=== PATIENT | male | born 1985 | race Caucasian/White ===

== ENCOUNTER 2018-08-19 02:31 | Emergency (ER) | payer OTHER ==
[2018-08-19 03:17] LABS: Absolute Lymphocytes (CBC) 2.3 K/uL (0.7-4.9); Absolute Monocytes 0.4 K/uL (0.1-1.3); Absolute Neutrophil 4.3 K/uL (1.8-8.0); Basophils % 0.6 % (0-1.3); Eosinophils % 2.3 % (0-4.4); Hematocrit 46.1 % (39.6-49.0); Lymphocytes % 31.8 % (15.3-44.8); MPV 8.6 fL (7.6-11.3); Monocytes % 5.9 % (3.3-12.3); Protime INR 1.01; RBC Red Blood Cell Count 5.05 M/uL (4.33-5.43)
[2018-08-19] MEDS ORDERED: FOLIC ACID 5 MG/ML VIAL ONE (03:31)
[2018-08-19 03:32] LABS: ALT/SGPT 44 U/L (12-78); AST/SGOT 37 U/L (15-37); Albumin 3.8 g/dL (3.4-5.0); Alkaline Phosphatase 83 U/L (45-117); BUN Blood Urea Nitrogen 11 mg/dL (7-18); Bicarbonate 25 mmol/L (21-32); Bilirubin Direct 0.2 mg/dL (0-0.2); Bilirubin Total 0.9 mg/dL (0.2-1.0); Glucose Level 96 mg/dL (74-106); Magnesium 1.9 mg/dL (1.8-2.4); Potassium 3.6 mmol/L (3.5-5.1); Protein, Total 6.7 g/dL (6.4-8.2); Sodium Level 143 mmol/L (136-145); Troponin (Emerg Dept Use Only) < 0.02 ng/mL (0.0-0.045)
[2018-08-19] MEDS ORDERED: NA CHLORIDE 0.9% 100 ML IV ONE (03:32)
[2018-08-19] MEDS ORDERED: FENTANYL CITR 100 MCG/2 ML ONE (04:48)
[2018-08-19] MEDS ORDERED: NA CHLORIDE 0.9% 1,000 ML ONE (07:38)
--- NOTE | 2018-08-19 07:53 | EDPHYS ---
Physician Documentation [facility] Name: Stew Mcclendon Age: 32 yrs Sex: Male : 1985 Arrival Date: 08/19/2018 Time: 02:37 Bed 2 Private MD: ED Physician Won Blackwell HPI: 08/19 02:44 This 32 yrs old Male presents to ER via Unassigned with unknown complaint. snw 02:44 This 32 yrs old Male presents to ER via Unassigned with complaints of right snw arm numbness, speech difficulty. 02:44 The patient's problem is reported as numbness to right upper ext, + speech disturbance. snw Onset: The symptoms/episode began/occurred suddenly, this morning, noted on awakening at 0200 post going to bed at 2030. Duration: The episode is continuous. Context: the episode(s) was witnessed, by family, , symptoms became apparent upon waking, occurred at home, occurred while the patient was getting up to go to the bathroom. Associated signs and symptoms: Pertinent positives: speech difficulty. Severity of symptoms: At their worst the symptoms were moderate in the emergency department the symptoms are unchanged. Patient's baseline: Neuro: alert and fully oriented, Motor: no deficits, Ambulation: walks without assistance, Speech: normal. The patient has experienced a previous episode, approximately 1 months ago. It is unknown whether or not the patient has recently seen a physician. 02:53 pt states similar episode one month ago that lasted 1.5 hours and resolved. Pt with 30# snw wt loss in 2 months from cycling. Not much info on family hx. 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 Pt with HTN but has not needed medications for a while per his PCP. 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 - Social history:: Smoking status: Patient/guardian denies using tobacco, Patient/guardian denies using alcohol, street drugs. - Ebola Screening: : Patient negative for fever greater than or equal to 101.5 degrees Fahrenheit, and additional compatible Ebola Virus Disease symptoms Patient denies exposure to infectious person Patient denies travel to an Ebola-affected area in the 21 days before illness onset. ROS: 02:44 Constitutional: Negative for fever, chills, and weight loss, Eyes: Negative for injury, snw pain, redness, and discharge, ENT: Negative for injury, pain, and discharge, Neck: Negative for injury, pain, and swelling, Cardiovascular: Negative for chest pain, palpitations, and edema, Respiratory: Negative for shortness of breath, cough, wheezing, and pleuritic chest pain, Abdomen/GI: Negative for abdominal pain, nausea, vomiting, diarrhea, and constipation, Back: Negative for injury and pain, : Negative for injury, bleeding, discharge, and swelling, Skin: Negative for injury, rash, and discoloration. 02:44 MS/extremity: Positive for paresthesias, numbness to right upper ext. 02:44 Neuro: Positive for numbness. 02:44 Psych: Positive for anxiety. Exam: 02:44 Head/Face: Normocephalic, atraumatic. snw 02:44 Eyes: Pupils equal round and reactive to light, extra-ocular motions intact. Lids and lashes normal. Conjunctiva and sclera are non-icteric and not injected. Cornea within normal limits. Periorbital areas with no swelling, redness, or edema. ENT: Nares patent. No nasal discharge, no septal abnormalities noted. Tympanic membranes are normal and external auditory canals are clear. Oropharynx with no redness, swelling, or masses, exudates, or evidence of obstruction, uvula midline. Mucous membranes moist. Neck: Trachea midline, no thyromegaly or masses palpated, and no cervical lymphadenopathy. Supple, full range of motion without nuchal rigidity, or vertebral point tenderness. No Meningismus. Chest/axilla: Normal chest wall appearance and motion. Nontender with no deformity. No lesions are appreciated. Cardiovascular: Regular rate and rhythm with a normal S1 and S2. No gallops, murmurs, or rubs. Normal PMI, no JVD. No pulse deficits. Respiratory: Lungs have equal breath sounds bilaterally, clear to auscultation and percussion. No rales, rhonchi or wheezes noted. No increased work of breathing, no retractions or nasal flaring. Abdomen/GI: Soft, non-tender, with normal bowel sounds. No distension or tympany. No guarding or rebound. No evidence of tenderness throughout. Back: No spinal tenderness. No costovertebral tenderness. Full range of motion. Skin: Warm, dry with normal turgor. Normal color with no rashes, no lesions, and no evidence of cellulitis. MS/ Extremity: Pulses equal, no cyanosis. Neurovascular intact. Full, normal range of motion. 02:44 Constitutional: The patient appears awake, anxious, uncomfortable. 02:44 Neuro: Orientation: is normal, Mentation: is normal, Memory: is normal, Cranial nerves: grossly normal, minimal on extreme lateral gaze. Motor: is normal, Sensation: no obvious gross deficits, Gait: not applicable Babinski testing is normal, seizure activity, is not displayed by the patient. 02:44 Psych: Affect is animated, anxious. Vital Signs: 02:35 BP 180 / 112; Pulse 93; Resp 20; Temp 98.3(O); Pulse Ox 98% on R/A; Weight 104.78 kg fc (R); Height 5 ft. 8 in. (172.72 cm) (R); Pain 0/10; 03:21 BP 138 / 91; Pulse 84; Resp 14; Pulse Ox 97% on R/A; tl2 04:28 BP 124 / 86; Pulse 88; Resp 18; Pulse Ox 98% ; ea 04:38 BP 124 / 86; Pulse 84; Resp 19; Pulse Ox 100% on R/A; tl2 05:13 BP 132 / 84; Pulse 67; Resp 15; Pulse Ox 98% on R/A; tl2 06:05 BP 112 / 74; Pulse 70; Resp 12; Pulse Ox 99% on R/A; tl2 06:55 BP 112 / 74; Pulse 66; Resp 15; Pulse Ox 97% on R/A; tl2 02:35 Body Mass Index 35.12 (104.78 kg, 172.72 cm) NIH Stroke Scale Scores: 02:40 NIHSS Score: 1 tl2 02:44 NIHSS Score: 1 snw MDM: 02:38 Patient medically screened. snw 02:52 Data reviewed: vital signs, nurses notes. Data interpreted: Pulse oximetry: on room air snw is 98 %. Interpretation: normal. Counseling: I had a detailed discussion with the patient and/or guardian regarding: the historical points, exam findings, and any diagnostic results supporting the discharge/admit diagnosis, the presence of at least one elevated blood pressure reading (>120/80) during this emergency department visit, lab results, radiology results. 04:31 Awaiting: CT scan results, transmission problem, loom technician working with IT, no obvious snw abnormality on CT. . 04:36 Transition of care: After a detail discussion of the patient's case, care is snw transferred to Won Blackwell MD. 08:10 ED course: I discussed the patient with Dr. Pearson whom accepted transfer. [facility] 08/19 02:44 Order name: Basic Metabolic Panel [facility] 08/19 02:44 Order name: CBC with Diff [facility] 08/19 02:44 Order name: LFT's [facility] 08/19 02:44 Order name: Magnesium [facility] 08/19 02:44 Order name: PT-INR; Complete Time: 03:28 [facility] 08/19 02:44 Order name: Troponin (emerg Dept Use Only); Complete Time: 04:14 [facility] 08/19 02:46 Order name: Basic Metabolic Panel; Complete Time: 04:14 [facility] 08/19 02:46 Order name: CBC with Automated Diff; Complete Time: 03:28 [facility] 08/19 02:46 Order name: Liver (Hepatic) Function; Complete Time: 04:14 [facility] 08/19 02:46 Order name: Magnesium; Complete Time: 04:14 [facility] 08/19 07:18 Order name: Acetaminophen [facility] 08/19 07:18 Order name: ETOH Level; Complete Time: 10:06 [facility] 08/19 07:18 Order name: Ptt, Activated; Complete Time: 10:06 [facility] 08/19 07:18 Order name: Salicylate; Complete Time: 10:22 [facility] 08/19 02:44 Order name: XRAY Chest (1 view); Complete Time: 09:04 [facility] 08/19 02:44 Order name: EKG; Complete Time: 02:47 [facility] 08/19 02:44 Order name: Cardiac monitoring; Complete Time: 02:44 [facility] 08/19 02:44 Order name: EKG - Nurse/Tech; Complete Time: 03:04 [facility] 08/19 02:44 Order name: IV Saline Lock; Complete Time: 03:04 snw 08/19 02:44 Order name: Labs collected and sent; Complete Time: 03:08 snw 08/19 02:44 Order name: CT Stroke Brain w/o Contrast snw 08/19 07:21 Order name: Acetaminophen Level; Complete Time: 10:22 EDMS 08/19 07:32 Order name: MRI - Brain Wo Cont; Complete Time: 08:31 bd 08/19 02:44 Order name: O2 Per Protocol; Complete Time: 02:44 snw 08/19 02:44 Order name: O2 Sat Monitoring; Complete Time: 02:44 snw Administered Medications: 03:20 Drug: foLIC Acid 1 mg Route: IVPB; Site: right forearm; tl2 04:14 Follow up: Response: No adverse reaction; IV Status: Completed infusion ea 05:06 Drug: fentaNYL (PF) 25 mcg Route: IVP; Site: right forearm; tl2 05:30 Follow up: Response: No adverse reaction; Pain is decreased ea 06:28 Drug: fentaNYL (PF) 25 mcg Route: IVP; Site: right forearm; ea 07:28 Drug: NS 0.9% 1000 ml Route: IV; Rate: 1 bolus; Site: right forearm; sg 09:00 Drug: Aspirin Chewable Tablet 324 mg Route: PO; sg Point of Care Testing: Blood Glucose: 02:41 Blood Glucose: 93 mg/dL; fc Ranges: Critical Glucose Levels:Adult <50 mg/dl or >400 mg/dl <40 mg/dl or >180 mg/dl Disposition: 08/19/18 07:53 Transfer ordered to [facility]. Diagnosis are Headache, Weakness, Cerebral infarction. - Reason for transfer: Higher level of care. - Accepting physician is [facility] Neurology . - Condition is Stable. - Problem is new. - Symptoms have improved. NIH Stroke Scale - NIH Stroke Score Date: 08/19/2018 Time: 02:40 Total Score = 1 1a. Level of Consciousness (LOC) - 0(Alert) 1b. Level of Consciousness (LOC) (Year \\T\\ Age) - 0(Both) 1c. LOC Commands (Open \\T\\ Closes Eyes/Real Estate Rental Agent) - 0(Both) 2. Best Gaze (Lateral Gaze Paresis) - 0(Normal) 3. Visual Field Loss - 0(No visual loss) 4. Facial Palsy - 0(Normal) 5a. Left Arm: Motor (10-second hold) - 0(No drift) 5b. Right Arm: Motor (10-second hold) - 0(No drift) 6a. Left Leg: Motor (5-second hold - always test supine) - 0(No drift) 6b. Right Leg: Motor (5-second hold - always test supine) - 0(No drift) 7. Limb Ataxia (finger/nose \\T\\ heel/mckeon - test with eyes open) - 0(Absent) 8. Sensory Loss (pinprick arms/legs/face) - 0(Normal) 9. Best Language: Aphasia (description/naming/reading) - 0(No aphasia) 10. Dysarthria (speech clarity - read or repeat words) - 1(Mild to Moderate) 11. Extinction and Inattention (visual/tactile/auditory/spatial/personal) - 0(No abnormality) Initials: tl2 NIH Stroke Scale - NIH Stroke Score Date: 08/19/2018 Time: 02:44 Total Score = 1 1a. Level of Consciousness (LOC) - 0(Alert) 1b. Level of Consciousness (LOC) (Year \\T\\ Age) - 0(Both) 1c. LOC Commands (Open \\T\\ Closes Eyes/Real Estate Rental Agent) - 0(Both) 2. Best Gaze (Lateral Gaze Paresis) - 0(Normal) 3. Visual Field Loss - 0(No visual loss) 4. Facial Palsy - 0(Normal) 5a. Left Arm: Motor (10-second hold) - 0(No drift) 5b. Right Arm: Motor (10-second hold) - 0(No drift) 6a. Left Leg: Motor (5-second hold - always test supine) - 0(No drift) 6b. Right Leg: Motor (5-second hold - always test supine) - 0(No drift) 7. Limb Ataxia (finger/nose \\T\\ heel/mckeon - test with eyes open) - 0(Absent) 8. Sensory Loss (pinprick arms/legs/face) - 0(Normal) 9. Best Language: Aphasia (description/naming/reading) - 0(No aphasia) 10. Dysarthria (speech clarity - read or repeat words) - 1(Mild to Moderate) 11. Extinction and Inattention (visual/tactile/auditory/spatial/personal) - 0(No abnormality) Initials: snw Signatures: Dispatcher [employer] EDND Jorge Kennedy, RN RN Zhou William MD MD cha Therrien, Shelly, CARDIOTHORACIC ANESTHESIA TECHNICIAN-C CARDIOTHORACIC ANESTHESIA TECHNICIAN-Csnw Iván Mcneil PA PA jmm Chretien, Felicia RN RN Natividad Scherer RN RN tl2 Gilma Nuñez RN RN ea Corrections: (The following items were deleted from the chart) 08:32 07:20 MR STROKE PROTOCOL+MRI.RAD.BRZ ordered. [facility] 11:02 07:53 08/19/2018 07:53 Transfer ordered to [facility]. Diagnosis is sg Headache; Weakness; Cerebral infarction. Reason for transfer: Higher level of care. Accepting physician is [facility] Neurology . Condition is Stable. Problem is new. Symptoms have improved. trent
--- NOTE | 2018-08-19 07:53 | ER ---
Nurse's Notes [facility] Name: Stew Mcclendon Age: 32 yrs Sex: Male : 1985 Arrival Date: 08/19/2018 Time: 02:37 Bed 2 Private MD: Diagnosis: Headache;Weakness;Cerebral infarction Presentation: 08/19 02:35 Presenting complaint: Patient states: that he went to bed last night just fine. When he fc woke up this morning at 0200 he had right side numbness and trouble speaking. Has same episode 2 weeks ago and it lasted approx 1.5 hrs. Transition of care: patient was not received from another setting of care. Onset of symptoms was August 18, 2018 at 20:30. Risk Assessment: Do you want to hurt yourself or someone else? Patient reports no desire to harm self or others. Initial Sepsis Screen: Does the patient meet any 2 criteria? HR > 90 bpm. Yes Does the patient have a suspected source of infection? No. Patient's initial sepsis screen is negative. Care prior to arrival: None. 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 - Social history:: Smoking status: Patient/guardian denies using tobacco, Patient/guardian denies using alcohol, street drugs. - Ebola Screening: : Patient negative for fever greater than or equal to 101.5 degrees Fahrenheit, and additional compatible Ebola Virus Disease symptoms Patient denies exposure to infectious person Patient denies travel to an Ebola-affected area in the 21 days before illness onset. Screenin:35 Abuse screen: Denies threats or abuse. Nutritional screening: No deficits noted. fc Tuberculosis screening: No symptoms or risk factors identified. Fall Risk None identified. 02:40 VAN Screening: Arm Drift: Patient shows no arm weakness. Patient is VAN negative. tl2 Visual Disturbance: No visual disturbance noted. Aphasia: No aphasia noted. Neglect: No neglect noted. The patient has not been NPO before screening. The patient is alert, able to follow commands. The patient does not exhibit slurred or garbled speech The patient is exhibiting difficulty speaking. The patient does not exhibit difficulty understanding words. The patient is able to swallow own secretions with no drooling or need for suction. Patient tolerated one teaspoon of water. No drooling, immediate coughing, gurgling, or clearing of the throat was noted. The patient tolerated 90mL of water. No drooling, immediate coughing, gurgling, or clearing of the throat was noted. The patient passed the bedside swallow screening. Oral medications may be given as ordered. Contact Physician for further diet orders. Provider notified of bedside swallow screening results: Li TAM. Assessment: 02:40 General: Appears in no apparent distress. Behavior is calm, cooperative, appropriate ea for age. Pain: Denies pain. Neuro: Level of Consciousness is awake, alert, obeys commands, Oriented to person, place, time, situation, Associate Director Of Nursing are equal bilaterally Moves all extremities. Gait is steady, Speech is normal, Facial symmetry appears normal. Cardiovascular: Patient's skin is warm and dry. Respiratory: Airway is patent Respiratory effort is even, unlabored, Respiratory pattern is regular, symmetrical. Derm: Skin is pink, warm \\T\\ dry. 03:00 Reassessment: Patient appears in no apparent distress at this time. Patient and/or tl2 family updated on plan of care and expected duration. Pain level reassessed. pt reports numbness in mouth, denies difficulty swallowing. Awaiting CT results. 04:00 Reassessment: Patient appears in no apparent distress at this time. Patient and/or tl2 family updated on plan of care and expected duration. Pain level reassessed. Patient is alert, oriented x 3, equal unlabored respirations, skin warm/dry/pink. Awaiting CT results. 05:00 Reassessment: Patient appears in no apparent distress at this time. Patient and/or tl2 family updated on plan of care and expected duration. Pain level reassessed. Patient is alert, oriented x 3, equal unlabored respirations, skin warm/dry/pink. Awaiting CT results. 05:26 Reassessment: Patient and/or family updated on plan of care and expected duration. Pain ea level reassessed. Patient is alert, oriented x 3, equal unlabored respirations, skin warm/dry/pink. Awaiting on CT results. 07:29 Reassessment: Patient appears in no apparent distress at this time. Patient and/or sg family updated on plan of care and expected duration. Pain level reassessed. Patient is alert, oriented x 3, equal unlabored respirations, skin warm/dry/pink. Neuro: Level of Consciousness is awake, alert, obeys commands, Oriented to person, place, time, situation, Associate Director Of Nursing are equal bilaterally Speech is normal, Facial symmetry appears normal. Respiratory: Airway is patent Respiratory effort is Respiratory pattern is. 10:29 Reassessment: Patient appears in no apparent distress at this time. Patient and/or sg family updated on plan of care and expected duration. Pain level reassessed. Patient is alert, oriented x 3, equal unlabored respirations, skin warm/dry/pink. reports headache that is a 4/10 at this time, awaiting pt transport to receiving facility, pt requesting food, pt to remain NPO until seen by Neuro, will continue to monitor. Vital Signs: 02:35 BP 180 / 112; Pulse 93; Resp 20; Temp 98.3(O); Pulse Ox 98% on R/A; Weight 104.78 kg fc (R); Height 5 ft. 8 in. (172.72 cm) (R); Pain 0/10; 03:21 BP 138 / 91; Pulse 84; Resp 14; Pulse Ox 97% on R/A; tl2 04:28 BP 124 / 86; Pulse 88; Resp 18; Pulse Ox 98% ; ea 04:38 BP 124 / 86; Pulse 84; Resp 19; Pulse Ox 100% on R/A; tl2 05:13 BP 132 / 84; Pulse 67; Resp 15; Pulse Ox 98% on R/A; tl2 06:05 BP 112 / 74; Pulse 70; Resp 12; Pulse Ox 99% on R/A; tl2 06:55 BP 112 / 74; Pulse 66; Resp 15; Pulse Ox 97% on R/A; tl2 02:35 Body Mass Index 35.12 (104.78 kg, 172.72 cm) Vitals: 03:21 Cardiac Rhythm Assessment Sinus rhythm. tl2 NIH Stroke Scale Scores: 02:40 NIHSS Score: 1 tl2 02:44 NIHSS Score: 1 sn ED Course: 02:35 Arm band placed on Patient placed in an exam room, on a stretcher. fc 02:35 Patient has correct armband on for positive identification. Placed in gown. Bed in low fc position. Call light in reach. Side rails up X2. potline monitor on. Pulse ox on. NIBP on. 02:37 Patient arrived in ED. tl2 02:38 Li Lyle FNP-C is PHCP. snw 02:38 Won Blackwell MD is Attending Physician. snw 02:46 Triage completed. fc 02:59 X-ray completed. Portable x-ray completed in exam room. Patient tolerated procedure kw well. 02:59 EKG done, by ED staff, reviewed by Li TAM. fc 03:00 XRAY Chest (1 view) In Process Unspecified. EDMS 03:03 Inserted saline lock: 22 gauge in right forearm, using aseptic technique. Blood rv collected. 03:08 CT Stroke Brain w/o Contrast In Process Unspecified. EDMS 03:08 Initial lab(s) drawn, by shellfish processing laborer, sent to lab. tl2 04:28 Gilma Nuñez, RN is Primary Nurse. ea 06:52 PHCP role handed off by Li Lyle FNP-C jm 06:52 Iván Mcneil PA is PHCP. jmm 07:25 attempted transfer to [facility], pt was declined due to lack of capacity. bd 08:08 Patient moved to MRI via stretcher. lc 08:11 MRI - Brain Wo Cont In Process Unspecified. EDMS 08:37 Patient moved back from MRI. lc Administered Medications: 03:20 Drug: foLIC Acid 1 mg Route: IVPB; Site: right forearm; tl2 04:14 Follow up: Response: No adverse reaction; IV Status: Completed infusion ea 05:06 Drug: fentaNYL (PF) 25 mcg Route: IVP; Site: right forearm; tl2 05:30 Follow up: Response: No adverse reaction; Pain is decreased ea 06:28 Drug: fentaNYL (PF) 25 mcg Route: IVP; Site: right forearm; ea 07:28 Drug: NS 0.9% 1000 ml Route: IV; Rate: 1 bolus; Site: right forearm; sg 09:00 Drug: Aspirin Chewable Tablet 324 mg Route: PO; Point of Care Testing: Blood Glucose: 02:41 Blood Glucose: 93 mg/dL; fc Ranges: Outcome: 07:53 ER care complete, transfer ordered by MD. kent 11:02 Patient left the ED. NIH Stroke Scale - NIH Stroke Score Date: 08/19/2018 Time: 02:40 Total Score = 1 1a. Level of Consciousness (LOC) - 0(Alert) 1b. Level of Consciousness (LOC) (Year \\T\\ Age) - 0(Both) 1c. LOC Commands (Open \\T\\ Closes Eyes/Readiness Paraprofessional) - 0(Both) 2. Best Gaze (Lateral Gaze Paresis) - 0(Normal) 3. Visual Field Loss - 0(No visual loss) 4. Facial Palsy - 0(Normal) 5a. Left Arm: Motor (10-second hold) - 0(No drift) 5b. Right Arm: Motor (10-second hold) - 0(No drift) 6a. Left Leg: Motor (5-second hold - always test supine) - 0(No drift) 6b. Right Leg: Motor (5-second hold - always test supine) - 0(No drift) 7. Limb Ataxia (finger/nose \\T\\ heel/mckeon - test with eyes open) - 0(Absent) 8. Sensory Loss (pinprick arms/legs/face) - 0(Normal) 9. Best Language: Aphasia (description/naming/reading) - 0(No aphasia) 10. Dysarthria (speech clarity - read or repeat words) - 1(Mild to Moderate) 11. Extinction and Inattention (visual/tactile/auditory/spatial/personal) - 0(No abnormality) Initials: tl2 NIH Stroke Scale - NIH Stroke Score Date: 08/19/2018 Time: 02:44 Total Score = 1 1a. Level of Consciousness (LOC) - 0(Alert) 1b. Level of Consciousness (LOC) (Year \\T\\ Age) - 0(Both) 1c. LOC Commands (Open \\T\\ Closes Eyes/Readiness Paraprofessional) - 0(Both) 2. Best Gaze (Lateral Gaze Paresis) - 0(Normal) 3. Visual Field Loss - 0(No visual loss) 4. Facial Palsy - 0(Normal) 5a. Left Arm: Motor (10-second hold) - 0(No drift) 5b. Right Arm: Motor (10-second hold) - 0(No drift) 6a. Left Leg: Motor (5-second hold - always test supine) - 0(No drift) 6b. Right Leg: Motor (5-second hold - always test supine) - 0(No drift) 7. Limb Ataxia (finger/nose \\T\\ heel/mckeon - test with eyes open) - 0(Absent) 8. Sensory Loss (pinprick arms/legs/face) - 0(Normal) 9. Best Language: Aphasia (description/naming/reading) - 0(No aphasia) 10. Dysarthria (speech clarity - read or repeat words) - 1(Mild to Moderate) 11. Extinction and Inattention (visual/tactile/auditory/spatial/personal) - 0(No abnormality) Initials: snw Signatures: Dispatcher [employer] EDMS Elissa Herrera Steven, RN RN sg Li Lyle, BOAT HOIST OPERATOR HELPER-C BOAT HOIST OPERATOR HELPER-Csnw Iván Mcneil PA PA jmm Compean, Lorena lc Chretien, Felicia RN LEW Bere Mireles Taylor, RN RN tl2 Gilma Nuñez RN RN ea Vicente, Ronaldo RN RN rv Corrections: (The following items were deleted from the chart) 03:01 02:59 EKG done, by ED staff, reviewed by Won Blcakwell MD [facility] 06:08 03:11 NIHSS Score: 1 tl2 tl2
--- NOTE | 2018-08-19 08:29 | RAD REPORT ---
EXAM DESCRIPTION: MRI - Brain Wo Cont - 08/19/2018 8:12 am CLINICAL HISTORY: Right-sided weakness, acute stroke-like symptoms COMPARISON: CT head August 19 TECHNIQUE: Sagittal T1-weighted images were obtained along with axial PD, heavily T2-weighted and T2 -FLAIR images. Axial DWI and ADC mapping sequences were also obtained along with coronal heavily T2-w eighted images. FINDINGS: No intracranial hemorrhage, mass or acute infarction. There is no edema or shift of midlin e structures. No extra-axial fluid collections. Shaffer-matter/white matter junction is preserved. Signa l voids are seen as a normal finding in the major intracranial vessels. No globe or orbital content abnormality. No sella or supra sella abnormality. There is no tonsillar e ctopia. Mastoid air cells and paranasal sinuses are clear. IMPRESSION: No acute infarction changes. No acute intracranial finding.
[2018-08-19] MEDS ORDERED: ASPIRIN 81 MG CHEWABLE TABLET ONE (08:46)
--- NOTE | 2018-08-19 09:01 | RAD REPORT ---
EXAM DESCRIPTION: RAD - Chest Single View - 08/19/2018 2:59 am CLINICAL HISTORY: Stroke protocol chest film COMPARISON: None. TECHNIQUE: AP portable chest image was obtained 0257 hours . FINDINGS: Lungs are clear. Heart and vasculature are normal. No measurable pleural effusion and no p neumothorax. No acute bony abnormality seen. No acute aortic findings suspected. IMPRESSION: No acute cardiopulmonary process.
--- NOTE | 2018-08-19 09:54 | EKG ---
Test Date: 2018-08-19 Test Time: 02:59:15 Potato Sorter: MONI MEASUREMENT RESULTS: Intervals: Rate: 89 FL: 126 QRSD: 90 QT: 384 QTc: 467 Corral: P: 51 FL: 126 QRS: 70 T: 33 INTERPRETIVE STATEMENTS: Normal sinus rhythm Normal ECG No previous ECG available for comparison Electronically Signed On 08-19-18 09:53:34 CDT by Carroll Albarran
--- NOTE | 2018-08-19 10:40 | RAD REPORT ---
EXAM DESCRIPTION: CT - Ct Stroke Brain Wo Cont - 08/19/2018 6:13 am CLINICAL HISTORY: Numbness;Slurred speech COMPARISON: None. TECHNIQUE: CT HEAD WITHOUT IV CONTRAST on 08/19/2018 2:44 AM CDT This exam was performed according to our departmental dose-optimization program, which includes autom ated exposure control, adjustment of the mA and/or kV according to patient size and/or use of iterati ve reconstruction technique. FINDINGS: There is no acute hemorrhage, mass effect or midline shift. Shaffer-white differentiation is preserved. There is no hydrocephalus. There is no significant volume loss for age. The calvarium is intact. Orbits and globes are unremarkable. The paranasal sinuses are clear. Mastoid air cells are clear. IMPRESSION: No acute intracranial findings. Electronically signed by: Dayday Yuan MD 08/19/2018 5:10 AM CDT Due to temporary technical issues with the PACS/Fluency reporting system, reports are being signed by the in house radiologist as a courtesy to ensure prompt reporting. The interpreting radiologist is f ully responsible for the content of the report.
== END 2018-08-19 11:02 | disposition short-term general hospital (02) ==
LOC: ER 02:31
DX: I63.9 Cerebral infarction, unspecified (principal); I10 Essential (primary) hypertension; R29.701 NIHSS score 1; Z88.0 Allergy status to penicillin; Z88.6 Allergy status to analgesic agent; Z88.8 Allergy status to other drugs, medicaments and biological substances
CPT/HCPCS: 36415; 70450; 70551; 71045; 80048; 80076; 80320; 80329; 82962; 83735; 84484; 85025; 85610; 85730; 93005; 96365; 96375; 99285; J3010; J7030

== ENCOUNTER 2018-08-30 12:37 | Emergency (ER) | payer OTHER ==
--- OUTSIDE RECORDS SUMMARY | 2018-08-30 12:40 | XMS REPORT ---
:1985 Author Organization [facility] Address [address] [place] [address] Dr. Moore [address] [place] [id number] Care Team Providers Name Role Phone Unavailable Unavailable Unavailable Problems This patient has no known problems. Allergies, Adverse Reactions, Alerts This patient has no known allergies or adverse reactions. Medications This patient has no known medications.
--- NOTE | 2018-08-30 12:59 | RAD REPORT ---
EXAM DESCRIPTION: CT - Ct Stroke Brain Wo Cont - 08/30/2018 12:52 pm CLINICAL HISTORY: Right-sided weakness, bilateral upper extremity numbness CLINICAL HISTORY: CT Stroke protocol August 19, MRI August 19 TECHNIQUE: Axial 5 millimeter thick images of the head were obtained without IV contrast. All CT scans are performed using dose optimization technique as appropriate and may include automated exposure control or mA/KV adjustment according to patient size. FINDINGS: No intracranial hemorrhage, mass, or cerebral edema. No acute cortical based infarction. N o cortical edema or sulcal effacement. Ventricles are normal size. No extra-axial fluid collections. Shaffer matter-white matter differentiation is preserved. Intracranial findings are stable from comparison. Visualized portions of the mastoid air cells, paranasal sinuses, and orbits are unremarkable. Findings telephoned to the referring clinician 12:55 p.m. IMPRESSION: No CT evidence of acute intracranial process. No significant change from comparison.
[2018-08-30 13:07] LABS: Absolute Lymphocytes (CBC) 4.5 K/uL (0.7-4.9); Basophils % 0.5 % (0-1.3); Eosinophils % 1.2 % (0-4.4); Hematocrit 49.8 % (39.6-49.0); MPV 8.3 fL (7.6-11.3); Monocytes % 6.5 % (3.3-12.3); RBC Red Blood Cell Count 5.45 M/uL (4.33-5.43)
[2018-08-30 13:10] LABS: Protime INR 0.97
[2018-08-30 13:12] LABS: Potassium 3.8 mmol/L (3.5-5.1)
--- NOTE | 2018-08-30 13:17 | RAD REPORT ---
EXAM DESCRIPTION: RAD - Chest Single View - 08/30/2018 1:06 pm CLINICAL HISTORY: Shortness of breath, Stroke protocol chest film COMPARISON: August 19 TECHNIQUE: AP portable chest image was obtained 1258 hours . FINDINGS: Lungs are clear. Heart and vasculature are normal. No measurable pleural effusion and no p neumothorax. No acute bony abnormality seen. No acute aortic findings suspected. IMPRESSION: No acute cardiopulmonary process. No significant interval change.
--- NOTE | 2018-08-30 13:52 | RAD REPORT ---
EXAM DESCRIPTION: MRI - Brain Wo Cont - 08/30/2018 1:45 pm CLINICAL HISTORY: Slurred speech, whole body numbness, stroke-like symptoms COMPARISON: CT head August 30, MR brain August 19 TECHNIQUE: Sagittal T1-weighted images were obtained along with axial PD, heavily T2-weighted and T2 -FLAIR images. Axial DWI and ADC mapping sequences were also obtained along with coronal heavily T2-w eighted images. FINDINGS: No intracranial hemorrhage, mass or acute infarction. There is no edema or shift of midlin e structures. No extra-axial fluid collections. Shaffer-matter/white matter junction is preserved. Signa l voids are seen as a normal finding in the major intracranial vessels. Ventricles are normal. No atrophy changes. No white matter signal abnormalities identifiable. No sell a or supra sella abnormality. No globe or orbital content abnormality. Mastoid air cells and paranasal sinuses are clear. IMPRESSION: Negative non-contrast MRI of the Brain. No identifiable changes from prior imaging.
[2018-08-30 14:07] LABS: Thyroid Stimulating Hormone 1.52 uIU/mL (0.360-3.740)
[2018-08-30] MEDS ORDERED: METOCLOPRAMIDE 10 MG/2mL INJ ONE (14:12)
[2018-08-30] MEDS ORDERED: NA CHLORIDE 0.9% 1,000 ML ONE (14:12)
[2018-08-30] MEDS ORDERED: MEPERIDINE HCL 25 MG/0.5 ML ONE (15:34)
[2018-08-30] MEDS ORDERED: ONDANSETRON 4 MG/2 ML VIAL ONE (15:34)
[2018-08-30] MEDS ORDERED: KETOROLAC 30 MG/ML INJ ONE (16:08)
--- NOTE | 2018-08-30 16:42 | ER ---
Nurse's Notes [facility] Name: Stew Mcclendon Age: 32 yrs Sex: Male : 1985 Arrival Date: 08/30/2018 Time: 12:42 Bed 8 Private MD: Diagnosis: Complicated headache syndromes Presentation: 08/30 12:33 An acute neurological deficit is present. The patient has been moved to a [facility]. Pre-hospital glucose is not applicable to this patient. 12:33 Presenting complaint: Pt's co-worker states "we were in [employer] shopping and he started aa5 slurring his words and complaining of numbness to the left side of his body". Pt currently c/o numbness to right and left side of body. Pt was able to get out of car by himself to a wheelchair. Pt placed in bed, pt able to ambulate from wheelchair to bed with steady gait. Pt reports he was discharged from [facility] on August 20 and states "they diagnosed me with a neurological disorder because they couldn't figure out exactly what was wrong with me". Transition of care: patient was not received from another setting of care. Onset of symptoms was August 30, 2018. Risk Assessment: Do you want to hurt yourself or someone else? Patient reports no desire to harm self or others. Initial Sepsis Screen: Does the patient meet any 2 criteria? No. Patient's initial sepsis screen is negative. Does the patient have a suspected source of infection? No. Patient's initial sepsis screen is negative. Care prior to arrival: None. 12:33 Acuity: JEAN 2 aa5 12:33 Method Of Arrival: Wheelchair aa5 12:33 Onset of symptoms was August 30, 2018 at 12:00. aa5 Triage Assessment: 12:33 The onset of the patients symptoms was August 30, 2018 at 12:00. aa5 Stroke Activation: Symptom onset < 3 hours Physician: Stroke Attending; Name: ; Notified At: ; Arrived At: Physician: Chief Stroke Resident; Name: ; Notified At: ; Arrived At: Physician: Stroke Resident; Name: ; Notified At: ; Arrived At: Physician: ED Attending; Name: ; Notified At: ; Arrived At: Physician: ED Resident; Name: ; Notified At: ; Arrived At: Historical: - Allergies: 12:35 Ceclor; aa5 12:35 PENICILLINS; aa5 12:35 Tylenol; aa5 - Home Meds: 13:05 Propranolol Oral for migraines [Active]; aa5 - PMHx: 12:35 "born premature with multiple strokes"; Asthma; Hypertension; Migraines; aa5 - PSHx: 12:35 None; aa5 - Family history:: not pertinent. - Ebola Screening: : No symptoms or risks identified at this time. - Hospitalizations: : Patient was recently seen at. Screenin:05 Abuse screen: Denies threats or abuse. Nutritional screening: No deficits noted. aa5 Tuberculosis screening: No symptoms or risk factors identified. Fall Risk IV access (20 points). Total Rodrigues Fall Scale indicates No Risk (0-24 pts). Assessment: 12:35 Reassessment: Dr. Henderson at bedside . aa5 12:35 General: Appears uncomfortable, Behavior is cooperative, anxious. Pain: Denies pain. aa5 Neuro: Level of Consciousness is awake, alert, obeys commands, Oriented to person, place, time, situation, Maternal Fetal Physician are weak on right Moves all extremities. Weakness in right arm(s) leg(s) Speech is slurred, Facial symmetry appears normal, Pupils are PERRLA, Pt reports numbness to rosa legs and arms. . Cardiovascular: Heart tones S1 S2 present Rhythm is regular. Respiratory: Airway is patent Respiratory effort is even, unlabored, Respiratory pattern is regular, symmetrical. GI: No signs and/or symptoms were reported involving the gastrointestinal system. : No signs and/or symptoms were reported regarding the genitourinary system. EENT: No signs and/or symptoms were reported regarding the EENT system. Derm: Skin is pink, warm \\T\\ dry. Musculoskeletal: Range of motion: intact in all extremities. 12:35 VAN Scoring: Arm Drift: Severe drift Visual Disturbance: No visual disturbance noted. aa5 Aphasia: Expressive aphasia noted. Provider notified of +VAN scoring. Neglect: No neglect noted. 12:41 Reassessment: Pt taken to CT via stretcher, accompanied by me. aa5 13:05 Reassessment: Pt back from CT. Pt's at bedside. Pt's states "[facility] just aa5 discharged him on the and gave him propranolol for migraine prevention". Pt's states "He has been having several episodes like this" . 13:05 Reassessment: Patient is alert, oriented x 3, equal unlabored respirations, skin aa5 warm/dry/pink. Patient denies pain at this time. Patient states feeling better. Pt states "I feel way better, I can move my legs and arms and I don't have any numbness". Mild slurred speech noted at this time. . Neuro: Level of Consciousness is awake, alert, obeys commands, Oriented to person, place, time, situation, Maternal Fetal Physician are equal bilaterally Moves all extremities. Speech is slurred, Facial symmetry appears normal, Pupils are PERRLA. 13:05 T-PA (Activase) Screening: Contraindications: Other: Pt's reported pt had "several aa5 episodes like this this week". 13:20 Patient has been NPO before screening. The patient is alert, and able to follow aa5 commands. The patient does not exhibit slurred or garbled speech. The patient is not exhibiting difficulty speaking. The patient does not exhibit difficulty understanding words. The patient is able to swallow own secretions with no drooling or need for suction. Patient tolerated one teaspoon of water. No drooling, immediate coughing, gurgling, or clearing of the throat was noted. The patient tolerated 90mL of water. No drooling, immediate coughing, gurgling, or clearing of the throat was noted. The patient passed the bedside swallow screening. Oral medications may be given as ordered. Contact Physician for further diet orders. Provider notified of bedside swallow screening results: Grzegorz Henderson MD. Neuro: Level of Consciousness is awake, alert, obeys commands, Oriented to person, place, time, situation, Maternal Fetal Physician are equal bilaterally Moves all extremities. Speech is normal, Facial symmetry appears normal, Pupils are PERRLA. Respiratory: Airway is patent Respiratory effort is even, unlabored, Respiratory pattern is regular, symmetrical. Derm: Skin is pink, warm \\T\\ dry. 14:00 Reassessment: Patient is alert, oriented x 3, equal unlabored respirations, skin aa5 warm/dry/pink. Patient denies pain at this time. Pt back from MRI. Neuro: Level of Consciousness is awake, alert, obeys commands, Oriented to person, place, time, situation, Maternal Fetal Physician are equal bilaterally Moves all extremities. Speech is normal, Facial symmetry appears normal, Pupils are PERRLA. 15:00 Reassessment: Patient is alert, oriented x 3, equal unlabored respirations, skin aa5 warm/dry/pink. Pt c/o "migraine to my whole head". Pt rates pain 9/10 on a pain scale. . Neuro: Level of Consciousness is awake, alert, obeys commands, Oriented to person, place, time, situation, Maternal Fetal Physician are equal bilaterally Moves all extremities. Speech is normal, Facial symmetry appears normal, Pupils are PERRLA. 15:00 Reassessment: Dr. Henderson notified of c/o migraine and nausea. . aa5 16:00 Reassessment: Patient is alert, oriented x 3, equal unlabored respirations, skin aa5 warm/dry/pink. Pt attempted to get into wheelchair, pt got back into bed and states "I need to rest". Agreed to let pt rest. . 17:00 Reassessment: Patient is alert, oriented x 3, equal unlabored respirations, skin aa5 warm/dry/pink. Patient states symptoms have not improved. Pt vomited, notified. . Vital Signs: 12:35 BP 147 / 105; Pulse 81; Resp 16 S; Temp 97.6(TE); Pulse Ox 100% on R/A; Pain 0/10; aa5 13:20 BP 147 / 95; Pulse 72; Resp 16 S; Pulse Ox 100% on R/A; aa5 15:45 BP 128 / 84; Pulse 82; Resp 18 S; Temp 98.0(TE); Pulse Ox 100% on R/A; Pain 9/10; aa5 NIH Stroke Scale Scores: 12:35 NIHSS Score: 8 aa5 12:45 NIHSS Score: 6 rn 13:05 NIHSS Score: 1 aa5 15:00 NIHSS Score: 0 aa5 ED Course: 12:33 Susan Boyd, RN is Primary Nurse. Patient arrived in ED. aa5 12:40 Patient has correct armband on for positive identification. Placed in gown. Bed in low jp3 position. Call light in reach. Side rails up X 1. monitoring engineer on. Pulse ox on. NIBP on. 12:40 Arm band placed on. aa5 12:40 Initial lab(s) drawn, by me, sent to lab. aa5 12:42 Grzegorz Henderson MD is Attending Physician. rn 12:55 Patient maintains SpO2 saturation greater than 95% on room air. jp3 13:08 EKG done, by satellite tv technician. reviewed by Grzegorz Henderson MD. at1 13:20 Triage completed. aa5 13:24 Patient moved to MRI via wheelchair. ka 13:51 T4 Free Sent. jp3 13:52 Diet: Patient given water. Tolerated well Provider cleared pt to have cup of water. jp3 13:52 TSH Sent. jp3 13:52 Ptt, Activated Sent. jp3 13:52 Protime (+inr) Sent. jp3 13:52 CBC with Diff Sent. jp3 13:52 Basic Metabolic Panel Sent. jp3 13:52 Stroke CXR 1 View Sent. jp3 13:57 MRI completed. Patient tolerated well. Patient moved back from MRI. ka 15:42 Eduardo Espitia MD is Referral Physician. rn 16:00 No provider procedures requiring assistance completed. IV discontinued, intact, aa5 bleeding controlled, No redness/swelling at site. Pressure dressing applied. Administered Medications: 13:45 Drug: NS 0.9% 1000 ml Route: IV; Rate: 1000 ml; Site: right forearm; aa5 14:30 Follow up: IV Status: Completed infusion; IV Intake: 1000ml aa5 13:45 Drug: Reglan 10 mg Route: IVP; Site: right forearm; aa5 13:50 Follow up: Response: No adverse reaction aa5 15:19 Drug: Zofran 4 mg Route: IVP; Site: right forearm; aa5 15:36 Follow up: Response: No adverse reaction aa5 15:21 Drug: Demerol 25 mg Route: IVP; Site: right forearm; aa5 15:36 Follow up: Response: No adverse reaction aa5 15:51 Drug: TORadol 30 mg Route: IVP; Site: right forearm; aa5 16:00 Follow up: Response: No adverse reaction aa5 17:00 Drug: Zofran 4 mg Route: PO; aa5 17:00 Follow up: Response: Medication administered at discharge. aa5 17:07 Follow up: Response: No adverse reaction aa5 Point of Care Testing: Blood Glucose: 12:40 Blood Glucose: 80 mg/dL; aa5 Ranges: Intake: 14:30 IV: 1000ml; Total: 1000ml. aa5 Outcome: 15:42 Discharge ordered by MD. alvares 16:00 Discharged to home via wheelchair, with family. aa5 16:00 Condition: stable 16:00 Discharge instructions given to patient, Instructed on discharge instructions, follow up and referral plans. medication usage, Demonstrated understanding of instructions, follow-up care, medications, Prescriptions given X 2. 17:07 Patient left the ED. aa5 NIH Stroke Scale - NIH Stroke Score Date: 08/30/2018 Time: 12:35 Total Score = 8 1a. Level of Consciousness (LOC) - 0(Alert) 1b. Level of Consciousness (LOC) (Year \\T\\ Age) - 0(Both) 1c. LOC Commands (Open \\T\\ Closes Eyes/Diesel Scoop Operator) - 0(Both) 2. Best Gaze (Lateral Gaze Paresis) - 0(Normal) 3. Visual Field Loss - 0(No visual loss) 4. Facial Palsy - 0(Normal) 5a. Left Arm: Motor (10-second hold) - 0(No drift) 5b. Right Arm: Motor (10-second hold) - 2(Drift, some effort against gravity) 6a. Left Leg: Motor (5-second hold - always test supine) - 0(No drift) 6b. Right Leg: Motor (5-second hold - always test supine) - 2(Drift, some effort against gravity) 7. Limb Ataxia (finger/nose \\T\\ heel/mckeon - test with eyes open) - 0(Absent) 8. Sensory Loss (pinprick arms/legs/face) - 2(Severe to total loss) 9. Best Language: Aphasia (description/naming/reading) - 1(Mild to moderate aphasia) 10. Dysarthria (speech clarity - read or repeat words) - 1(Mild to Moderate) 11. Extinction and Inattention (visual/tactile/auditory/spatial/personal) - 0(No abnormality) Initials: aa5 NIH Stroke Scale - NIH Stroke Score Date: 08/30/2018 Time: 12:45 Total Score = 6 1a. Level of Consciousness (LOC) - 0(Alert) 1b. Level of Consciousness (LOC) (Year \\T\\ Age) - 0(Both) 1c. LOC Commands (Open \\T\\ Closes Eyes/Diesel Scoop Operator) - 0(Both) 2. Best Gaze (Lateral Gaze Paresis) - 0(Normal) 3. Visual Field Loss - 0(No visual loss) 4. Facial Palsy - 0(Normal) 5a. Left Arm: Motor (10-second hold) - 0(No drift) 5b. Right Arm: Motor (10-second hold) - 2(Drift, some effort against gravity) 6a. Left Leg: Motor (5-second hold - always test supine) - 0(No drift) 6b. Right Leg: Motor (5-second hold - always test supine) - 2(Drift, some effort against gravity) 7. Limb Ataxia (finger/nose \\T\\ heel/mckeon - test with eyes open) - 0(Absent) 8. Sensory Loss (pinprick arms/legs/face) - 1(Mild to moderate loss) 9. Best Language: Aphasia (description/naming/reading) - 1(Mild to moderate aphasia) 10. Dysarthria (speech clarity - read or repeat words) - 0(Normal) 11. Extinction and Inattention (visual/tactile/auditory/spatial/personal) - 0(No abnormality) Initials: lew NIH Stroke Scale - NIH Stroke Score Date: 08/30/2018 Time: 13:05 Total Score = 1 1a. Level of Consciousness (LOC) - 0(Alert) 1b. Level of Consciousness (LOC) (Year \\T\\ Age) - 0(Both) 1c. LOC Commands (Open \\T\\ Closes Eyes/Diesel Scoop Operator) - 0(Both) 2. Best Gaze (Lateral Gaze Paresis) - 0(Normal) 3. Visual Field Loss - 0(No visual loss) 4. Facial Palsy - 0(Normal) 5a. Left Arm: Motor (10-second hold) - 0(No drift) 5b. Right Arm: Motor (10-second hold) - 0(No drift) 6a. Left Leg: Motor (5-second hold - always test supine) - 0(No drift) 6b. Right Leg: Motor (5-second hold - always test supine) - 0(No drift) 7. Limb Ataxia (finger/nose \\T\\ heel/mckeon - test with eyes open) - 0(Absent) 8. Sensory Loss (pinprick arms/legs/face) - 0(Normal) 9. Best Language: Aphasia (description/naming/reading) - 0(No aphasia) 10. Dysarthria (speech clarity - read or repeat words) - 1(Mild to Moderate) 11. Extinction and Inattention (visual/tactile/auditory/spatial/personal) - 0(No abnormality) Initials: aa5 NIH Stroke Scale - NIH Stroke Score Date: 08/30/2018 Time: 15:00 Total Score = 0 1a. Level of Consciousness (LOC) - 0(Alert) 1b. Level of Consciousness (LOC) (Year \\T\\ Age) - 0(Both) 1c. LOC Commands (Open \\T\\ Closes Eyes/Diesel Scoop Operator) - 0(Both) 2. Best Gaze (Lateral Gaze Paresis) - 0(Normal) 3. Visual Field Loss - 0(No visual loss) 4. Facial Palsy - 0(Normal) 5a. Left Arm: Motor (10-second hold) - 0(No drift) 5b. Right Arm: Motor (10-second hold) - 0(No drift) 6a. Left Leg: Motor (5-second hold - always test supine) - 0(No drift) 6b. Right Leg: Motor (5-second hold - always test supine) - 0(No drift) 7. Limb Ataxia (finger/nose \\T\\ heel/mckeon - test with eyes open) - 0(Absent) 8. Sensory Loss (pinprick arms/legs/face) - 0(Normal) 9. Best Language: Aphasia (description/naming/reading) - 0(No aphasia) 10. Dysarthria (speech clarity - read or repeat words) - 0(Normal) 11. Extinction and Inattention (visual/tactile/auditory/spatial/personal) - 0(No abnormality) Initials: aa5 Signatures: Karen Barone RN RN Grzegorz Henderson MD MD rn Calderon, Audri, RN RN aa5 Oksana Roca, assembler radio and electrical EKG Tat1 Genesis Glez Jacob jp3 Corrections: (The following items were deleted from the chart) 13:14 12:42 Patient arrived in ED. shanna orozco 13:14 13:10 Susan Boyd, LEW is Primary Nurse. ernesto orozco 13:15 13:03 Verbal reassurance given. [email or web address] aa5 13:15 12:55 Initial lab(s) drawn, by fl, sent to lab. [email or web address] aa5 13:16 12:50 Blood Glucose: Blood Glucose Reading=80 mg/dL. 3 aa5 13:34 12:35 Neuro: Level of Consciousness is awake, alert, obeys commands, Oriented aa5 to person, place, time, situation, Maternal Fetal Physician are weak on right Moves all extremities. Weakness in right arm(s) leg(s) Speech is slurred, Facial symmetry appears normal, Pupils are PERRLA, aa5 15:41 13:30 Patient has been NPO before screening. The patient is alert, and able to aa5 follow commands. The patient does not exhibit slurred or garbled speech. The patient is not exhibiting difficulty speaking. The patient does not exhibit difficulty understanding words. The patient is able to swallow own secretions with no drooling or need for suction. Patient tolerated one teaspoon of water. No drooling, immediate coughing, gurgling, or clearing of the throat was noted. The patient tolerated 90mL of water. No drooling, immediate coughing, gurgling, or clearing of the throat was noted. The patient passed the bedside swallow screening. Oral medications may be given as ordered. Contact Physician for further diet orders. Provider notified of bedside swallow screening results: Grzegorz Henderson MD aa5 : 13:30 Neuro: Level of Consciousness is awake, alert, obeys commands, Oriented aa5 to person, place, time, situation, aa5 : 13:30 Respiratory: Airway is patent Respiratory effort is even, unlabored, aa5 Respiratory pattern is regular, symmetrical, aa5 :41 13:30 Derm: Skin is pink, warm \\T\\ dry. aa5 aa5 17:15 13:30 BP 147 / 95; Pulse 72bpm; Resp 16bpm; Spontaneous; Pulse Ox 100% RA; aa5 aa5
--- NOTE | 2018-08-30 16:42 | EDPHYS ---
Physician Documentation [facility] Name: Stew Mcclendon Age: 32 yrs Sex: Male : 1985 Arrival Date: 08/30/2018 Time: 12:42 Bed 8 Private MD: ED Physician Grzegorz Henderson HPI: 08/30 12:45 This 32 yrs old Male presents to ER via Unassigned with complaints of rn weakness and numbness right side, speech problem. 12:45 The patient presents to the emergency department with weakness of the right upper rn extremity, right lower extremity, a speech or higher order brain function problem. Onset: The symptoms/episode began/occurred 30 minute(s) ago. Associated signs and symptoms: Pertinent positives: paresthesias, weakness. Severity of symptoms: At their worst the symptoms were moderate in the emergency department the symptoms are unchanged. Current symptoms: dysphasia, paralysis or paresis. The patient has experienced similar episodes in the past. Reports has now happened twice in past, recently seen here and transferred to [facility] for similar symptoms, unclear diagnosis, told didn't have a stroke, symptoms resolved at the time, told has unclear "neurological problem". Denies head injury or trauma. Reports at [facility], felt sudden onset unable to get correct words out, reports numbness all 4 extremities but now weakness to right side of body. No headache, no vision changes. No chest pain. . Historical: - Allergies: 12:35 Ceclor; aa5 12:35 PENICILLINS; aa5 12:35 Tylenol; aa5 - Home Meds: 13:05 Propranolol Oral for migraines [Active]; aa5 - PMHx: 12:35 "born premature with multiple strokes"; Asthma; Hypertension; Migraines; aa5 - PSHx: 12:35 None; aa5 - Family history:: not pertinent. - Ebola Screening: : No symptoms or risks identified at this time. - Hospitalizations: : Patient was recently seen at. ROS: 12:45 Constitutional: Negative for fever, chills, and weight loss, Eyes: Negative for injury, rn pain, redness, and discharge, Neck: Negative for injury, pain, and swelling, Cardiovascular: Negative for chest pain, palpitations, and edema, Respiratory: Negative for shortness of breath, cough, wheezing, and pleuritic chest pain, Abdomen/GI: Negative for abdominal pain, nausea, vomiting, diarrhea, and constipation, MS/Extremity: Negative for injury and deformity, Skin: Negative for injury, rash, and discoloration, Neuro: Negative for headache, and seizure. Exam: 12:45 Constitutional: This is a well developed, well nourished patient who is awake, alert, rn and in no acute distress. Head/Face: Normocephalic, atraumatic. Eyes: Pupils equal round and reactive to light, extra-ocular motions intact. Lids and lashes normal. Conjunctiva and sclera are non-icteric and not injected. Cornea within normal limits. Periorbital areas with no swelling, redness, or edema. Cardiovascular: Regular rate and rhythm. No pulse deficits. Respiratory: Lungs have equal breath sounds bilaterally, clear to auscultation. No increased work of breathing, no retractions or nasal flaring. Abdomen/GI: soft, non-tender MS/ Extremity: Pulses equal, no cyanosis. Neuro: Awake and alert, GCS 15, oriented to person, place, time, and situation. Cranial nerves II-XII grossly intact. + decreased sensation to soft touch in all 4 extremities. RUE/RLE drop immediately/forcefully when let go. Vital Signs: 12:35 BP 147 / 105; Pulse 81; Resp 16 S; Temp 97.6(TE); Pulse Ox 100% on R/A; Pain 0/10; aa5 13:20 BP 147 / 95; Pulse 72; Resp 16 S; Pulse Ox 100% on R/A; aa5 15:45 BP 128 / 84; Pulse 82; Resp 18 S; Temp 98.0(TE); Pulse Ox 100% on R/A; Pain 9/10; aa5 NIH Stroke Scale Scores: 12:35 NIHSS Score: 8 aa5 12:45 NIHSS Score: 6 rn 13:05 NIHSS Score: 1 aa5 15:00 NIHSS Score: 0 aa5 MDM: 12:42 Patient medically screened. rn 12:45 ED course: Pt with NIH stroke scale of 6, but exam findings are inconsistent, when I rn left the room patient moving right side of body, moved himself over to scanner table with right side of body, and later during exam lifted arm opening and closing right hand to show that it was numb. Very inconsistent. Also taking unknown blood thinner, and recent similar episode. May not be TPA candidate for all of these reasons.. 12:55 ED course: SPoke with MRI, able to get MRI brain without contrast within 30 min. Given rn inconsistent exam findings, numbness in all 4 ext, will wait for MRI, possibly saving this man from unnecessary TPA or harm. . 13:15 ED course: Pt's arrived, states that this has happened 4 times since leaving hospital, always lasts less than 1 hour, was diagnosed with complicated migraines. Now patient able to move, speak better, numbness gone. States now back to baseline. Will get MRI brain, but most likely complicated migraines, no indication for TPA, and will need continued neuro f/u. Recommended no driving until cleared. 15:14 Data reviewed: vital signs, nurses notes, lab test result(s), radiologic studies, and rn as a result, I will discharge patient. Counseling: I had a detailed discussion with the patient and/or guardian regarding: the historical points, exam findings, and any diagnostic results supporting the discharge/admit diagnosis, lab results, radiology results, the need for outpatient follow up, to return to the emergency department if symptoms worsen or persist or if there are any questions or concerns that arise at home. ED course: During evaluation, patient began complaining of headache, given rest of w/u negative so far, agree with most likely answer being complicated migraine.. 15:41 ED course: Sleeping comfortably. . rn 16:17 ED course: Pt crying and emotional upon discharge, will give him a moment.. rn 08/30 12:43 Order name: Basic Metabolic Panel rn 08/30 12:43 Order name: CBC with Diff rn 08/30 12:43 Order name: Protime (+inr) rn 08/30 12:43 Order name: Ptt, Activated rn 08/30 12:54 Order name: Glucose, Ancillary Testing; Complete Time: 13:50 EDMS 08/30 13:09 Order name: CBC with Automated Diff; Complete Time: 13:50 EDMS 08/30 12:43 Order name: CT Stroke Brain w/o Contrast rn 08/30 13:15 Order name: Basic Metabolic Panel; Complete Time: 15:30 EDMS 08/30 13:15 Order name: Protime (+INR); Complete Time: 13:50 EDMS 08/30 13:15 Order name: PTT, Activated Partial Thromb; Complete Time: 13:50 EDMS 08/30 13:16 Order name: TSH rn 08/30 13:16 Order name: T4 Free rn 08/30 15:14 Order name: T4 Free; Complete Time: 15:30 EDMS 08/30 15:14 Order name: Thyroid Stimulating Hormone; Complete Time: 15:30 EDMS 08/30 12:43 Order name: Stroke CXR 1 View rn 08/30 12:43 Order name: EKG; Complete Time: 12:54 rn 08/30 12:43 Order name: Accucheck; Complete Time: 13:52 rn 08/30 12:43 Order name: Cardiac monitoring; Complete Time: 13:52 rn 08/30 12:43 Order name: EKG - Nurse/Tech; Complete Time: 13:55 rn 08/30 12:43 Order name: IV Saline Lock; Complete Time: 13:52 rn 08/30 12:55 Order name: Brain Wo Cont MRI rn 08/30 13:03 Order name: CT; Complete Time: 13:50 EDMS 08/30 13:18 Order name: RAD; Complete Time: 13:50 EDMS 08/30 15:14 Order name: MRI; Complete Time: 15:30 EDMS 08/30 12:43 Order name: Labs collected and sent; Complete Time: 13:52 rn 08/30 12:43 Order name: NPO; Complete Time: 13:52 rn 08/30 12:43 Order name: O2 Per Protocol; Complete Time: 13:52 rn 08/30 12:43 Order name: O2 Sat Monitoring; Complete Time: 13:52 rn 08/30 12:43 Order name: Stroke Swallow Screen; Complete Time: 13:52 rn Administered Medications: 13:45 Drug: NS 0.9% 1000 ml Route: IV; Rate: 1000 ml; Site: right forearm; aa5 14:30 Follow up: IV Status: Completed infusion; IV Intake: 1000ml aa5 13:45 Drug: Reglan 10 mg Route: IVP; Site: right forearm; aa5 13:50 Follow up: Response: No adverse reaction aa5 15:19 Drug: Zofran 4 mg Route: IVP; Site: right forearm; aa5 15:36 Follow up: Response: No adverse reaction aa5 15:21 Drug: Demerol 25 mg Route: IVP; Site: right forearm; aa5 15:36 Follow up: Response: No adverse reaction aa5 15:51 Drug: TORadol 30 mg Route: IVP; Site: right forearm; aa5 16:00 Follow up: Response: No adverse reaction aa5 17:00 Drug: Zofran 4 mg Route: PO; aa5 17:00 Follow up: Response: Medication administered at discharge. aa5 17:07 Follow up: Response: No adverse reaction aa5 Point of Care Testing: Blood Glucose: 12:40 Blood Glucose: 80 mg/dL; aa5 Ranges: Critical Glucose Levels:Adult <50 mg/dl or >400 mg/dl <40 mg/dl or >180 mg/dl Disposition: 08/30/18 15:42 Discharged to Home. Impression: Complicated headache syndromes. - Condition is Stable. - Discharge Instructions: Migraine Headache. - Prescriptions for Ultram 50 mg Oral Tablet - take 1 tablet by ORAL route every 6 hours As needed; 20 tablet. Zofran ODT 4 mg Oral tablet,disintegrating - place 1 tablet by TRANSLINGUAL route every 8 hours As needed; 20 tablet. - Work release form, Medication Reconciliation Form, Thank You Letter, Antibiotic Education, Prescription Opioid Use form. - Follow up: Eduardo Espitia MD; When: As needed; Reason: Recheck today's complaints, Re-evaluation by your physician. - Problem is an ongoing problem. - Symptoms have improved. NIH Stroke Scale - NIH Stroke Score Date: 08/30/2018 Time: 12:35 Total Score = 8 1a. Level of Consciousness (LOC) - 0(Alert) 1b. Level of Consciousness (LOC) (Year \\T\\ Age) - 0(Both) 1c. LOC Commands (Open \\T\\ Closes Eyes/Power Sewing Machine Operator) - 0(Both) 2. Best Gaze (Lateral Gaze Paresis) - 0(Normal) 3. Visual Field Loss - 0(No visual loss) 4. Facial Palsy - 0(Normal) 5a. Left Arm: Motor (10-second hold) - 0(No drift) 5b. Right Arm: Motor (10-second hold) - 2(Drift, some effort against gravity) 6a. Left Leg: Motor (5-second hold - always test supine) - 0(No drift) 6b. Right Leg: Motor (5-second hold - always test supine) - 2(Drift, some effort against gravity) 7. Limb Ataxia (finger/nose \\T\\ heel/mckeon - test with eyes open) - 0(Absent) 8. Sensory Loss (pinprick arms/legs/face) - 2(Severe to total loss) 9. Best Language: Aphasia (description/naming/reading) - 1(Mild to moderate aphasia) 10. Dysarthria (speech clarity - read or repeat words) - 1(Mild to Moderate) 11. Extinction and Inattention (visual/tactile/auditory/spatial/personal) - 0(No abnormality) Initials: aa5 NIH Stroke Scale - NIH Stroke Score Date: 08/30/2018 Time: 12:45 Total Score = 6 1a. Level of Consciousness (LOC) - 0(Alert) 1b. Level of Consciousness (LOC) (Year \\T\\ Age) - 0(Both) 1c. LOC Commands (Open \\T\\ Closes Eyes/Power Sewing Machine Operator) - 0(Both) 2. Best Gaze (Lateral Gaze Paresis) - 0(Normal) 3. Visual Field Loss - 0(No visual loss) 4. Facial Palsy - 0(Normal) 5a. Left Arm: Motor (10-second hold) - 0(No drift) 5b. Right Arm: Motor (10-second hold) - 2(Drift, some effort against gravity) 6a. Left Leg: Motor (5-second hold - always test supine) - 0(No drift) 6b. Right Leg: Motor (5-second hold - always test supine) - 2(Drift, some effort against gravity) 7. Limb Ataxia (finger/nose \\T\\ heel/mckeon - test with eyes open) - 0(Absent) 8. Sensory Loss (pinprick arms/legs/face) - 1(Mild to moderate loss) 9. Best Language: Aphasia (description/naming/reading) - 1(Mild to moderate aphasia) 10. Dysarthria (speech clarity - read or repeat words) - 0(Normal) 11. Extinction and Inattention (visual/tactile/auditory/spatial/personal) - 0(No abnormality) Initials: rn NIH Stroke Scale - NIH Stroke Score Date: 08/30/2018 Time: 13:05 Total Score = 1 1a. Level of Consciousness (LOC) - 0(Alert) 1b. Level of Consciousness (LOC) (Year \\T\\ Age) - 0(Both) 1c. LOC Commands (Open \\T\\ Closes Eyes/Power Sewing Machine Operator) - 0(Both) 2. Best Gaze (Lateral Gaze Paresis) - 0(Normal) 3. Visual Field Loss - 0(No visual loss) 4. Facial Palsy - 0(Normal) 5a. Left Arm: Motor (10-second hold) - 0(No drift) 5b. Right Arm: Motor (10-second hold) - 0(No drift) 6a. Left Leg: Motor (5-second hold - always test supine) - 0(No drift) 6b. Right Leg: Motor (5-second hold - always test supine) - 0(No drift) 7. Limb Ataxia (finger/nose \\T\\ heel/mckeon - test with eyes open) - 0(Absent) 8. Sensory Loss (pinprick arms/legs/face) - 0(Normal) 9. Best Language: Aphasia (description/naming/reading) - 0(No aphasia) 10. Dysarthria (speech clarity - read or repeat words) - 1(Mild to Moderate) 11. Extinction and Inattention (visual/tactile/auditory/spatial/personal) - 0(No abnormality) Initials: aa5 NIH Stroke Scale - NIH Stroke Score Date: 08/30/2018 Time: 15:00 Total Score = 0 1a. Level of Consciousness (LOC) - 0(Alert) 1b. Level of Consciousness (LOC) (Year \\T\\ Age) - 0(Both) 1c. LOC Commands (Open \\T\\ Closes Eyes/Power Sewing Machine Operator) - 0(Both) 2. Best Gaze (Lateral Gaze Paresis) - 0(Normal) 3. Visual Field Loss - 0(No visual loss) 4. Facial Palsy - 0(Normal) 5a. Left Arm: Motor (10-second hold) - 0(No drift) 5b. Right Arm: Motor (10-second hold) - 0(No drift) 6a. Left Leg: Motor (5-second hold - always test supine) - 0(No drift) 6b. Right Leg: Motor (5-second hold - always test supine) - 0(No drift) 7. Limb Ataxia (finger/nose \\T\\ heel/mckeon - test with eyes open) - 0(Absent) 8. Sensory Loss (pinprick arms/legs/face) - 0(Normal) 9. Best Language: Aphasia (description/naming/reading) - 0(No aphasia) 10. Dysarthria (speech clarity - read or repeat words) - 0(Normal) 11. Extinction and Inattention (visual/tactile/auditory/spatial/personal) - 0(No abnormality) Initials: aa5 Signatures: Dispatcher [employer] Grzegorz Ross MD MD rn Calderon, Audri, RN RN aa5 Corrections: (The following items were deleted from the chart) 17:07 15:42 08/30/2018 15:42 Discharged to Home. Impression: Complicated headache aa5 syndromes. Condition is Stable. Forms are Medication Reconciliation Form, Thank You Letter, Antibiotic Education, Prescription Opioid Use. Follow up: Eduardo Espitia; When: As needed; Reason: Recheck today's complaints, Re-evaluation by your physician. Problem is an ongoing problem. Symptoms have improved. rn
--- NOTE | 2018-08-31 07:47 | EKG ---
Test Date: 2018-08-30 Test Time: 12:53:40 Arch Cushion Press Operator: ANT MEASUREMENT RESULTS: Intervals: Rate: 86 TX: 132 QRSD: 90 QT: 374 QTc: 447 [place]: P: 41 TX: 132 QRS: 61 T: 12 INTERPRETIVE STATEMENTS: Normal sinus rhythm Nonspecific ST abnormality Abnormal ECG Compared to ECG 08/19/2018 02:59:15 ST (T wave) deviation now present Electronically Signed On 08-31-18 07:46:05 CDT by Iglesia Quiroz
== END 2018-08-30 17:07 | disposition home or self-care (01) ==
LOC: ER 12:37
DX: G44.59 Other complicated headache syndrome (principal); R53.1 Weakness; J45.909 Unspecified asthma, uncomplicated; I10 Essential (primary) hypertension; Z88.6 Allergy status to analgesic agent; Z88.1 Allergy status to other antibiotic agents; Z88.0 Allergy status to penicillin
CPT/HCPCS: 36415; 70450; 70551; 71045; 80048; 82962; 84439; 84443; 85025; 85610; 85730; 93005; 96361; 96374; 96375; 99285; J2175; J2405; J2765; J7030

== ENCOUNTER 2018-09-07 09:52 | Emergency (ER) | payer OTHER ==
--- OUTSIDE RECORDS SUMMARY | 2018-09-07 09:55 | XMS REPORT ---
:1985 [facility] Address [address] [place] [address] Dr. Moore [address] [place] [id number] Care Team Providers Name Role Phone Unavailable Unavailable Unavailable Problems This patient has no known problems. Allergies, Adverse Reactions, Alerts This patient has no known allergies or adverse reactions. Medications This patient has no known medications.
[2018-09-07] MEDS ORDERED: DEXAMETHASONE 10 MG/ML VIAL ONE (10:27)
[2018-09-07] MEDS ORDERED: METOCLOPRAMIDE 10 MG/2mL INJ ONE (10:28)
[2018-09-07] MEDS ORDERED: NA CHLORIDE 0.9% 1,000 ML ONE (10:28)
[2018-09-07] MEDS ORDERED: MORPHINE 4 MG/ML SYR ONE ×2 (10:30→12:21)
--- NOTE | 2018-09-07 12:24 | EDPHYS ---
Physician Documentation [facility] Name: Stew Mcclendon Age: 32 yrs Sex: Male : 1985 Arrival Date: 09/07/2018 Time: 09:53 Bed 5 Private MD: ED Physician Grzegorz Henderson HPI: 09/07 11:05 This 32 yrs old Male presents to ER via Wheelchair with complaints of rn Headache. 11:05 The patient complains of pain to the forehead. The patient describes the headache as rn aching. Onset: The symptoms/episode began/occurred last night. Associated signs and symptoms: Pertinent positives: nausea, Pertinent negatives: altered mental status, fever, neck stiffness, rash, vision loss. Severity of symptoms: At its worst the pain was moderate, in the emergency department the pain is unchanged. The symptoms are alleviated by nothing. the symptoms are aggravated by lights, noise, stress. The patient has experienced similar episodes in the past. Recently seen and evaluated several times, diagnosis made at at [facility] with complicated migraines, last one was 1 week ago, I saw him. Returns with headache that began around 0330 today, assoc with nausea and light sensitivity, tingling to face, no weakness or speech problem this time. No trauma. Hasn't followed up with neurologist. . Historical: - Allergies: 10:04 Ceclor; ss 10:04 PENICILLINS; ss 10:04 Tylenol; ss - Home Meds: 10:41 Propranolol Oral for Migraines [Active]; tr5 - PMHx: 10:41 "born premature with multiple strokes"; Asthma; Hypertension; Migraines; tr5 - Immunization history:: Adult Immunizations up to date. - Social history:: Smoking status: Patient/guardian denies using tobacco. - Ebola Screening: : Patient negative for fever greater than or equal to 101.5 degrees Fahrenheit, and additional compatible Ebola Virus Disease symptoms. - Family history:: not pertinent. - Hospitalizations: : No recent hospitalization is reported. ROS: 11:05 Constitutional: Negative for fever, chills, and weight loss, Eyes: Negative for injury, rn pain, redness, and discharge, Neck: Negative for injury, pain, and swelling, Cardiovascular: Negative for chest pain, palpitations, and edema, Respiratory: Negative for shortness of breath, cough, wheezing, and pleuritic chest pain, Abdomen/GI: Negative for abdominal pain, diarrhea, and constipation, MS/Extremity: Negative for injury and deformity, Skin: Negative for injury, rash, and discoloration, Neuro: Negative for weakness, and seizure. Exam: 11:05 Constitutional: This is a well developed, well nourished patient who is awake, alert, rn emotional and holding head. Head/Face: Normocephalic, atraumatic. Eyes: Pupils equal round and reactive to light, extra-ocular motions intact. Lids and lashes normal. Conjunctiva and sclera are non-icteric and not injected. Cornea within normal limits. Periorbital areas with no swelling, redness, or edema. ENT: MMM Neck: Trachea midline, no thyromegaly or masses palpated, and no cervical lymphadenopathy. Supple, full range of motion without nuchal rigidity, or vertebral point tenderness. No Meningismus. Cardiovascular: Regular rate and rhythm. No pulse deficits. Respiratory: Lungs have equal breath sounds bilaterally, clear to auscultation. No increased work of breathing, no retractions or nasal flaring. Abdomen/GI: soft, non-tender Skin: Warm, dry with normal turgor. Normal color with no rashes, no lesions, and no evidence of cellulitis. MS/ Extremity: Pulses equal, no cyanosis. Neurovascular intact. Full, normal range of motion. Equal circumference. Neuro: Awake and alert, GCS 15, oriented to person, place, time, and situation. Cranial nerves II-XII grossly intact. Motor strength 4/5 in all extremities. Sensory grossly intact. Vital Signs: 10:04 BP 155 / 107; Pulse 84; Resp 22; Temp 97.6(TE); Pulse Ox 100% on R/A; ss 11:04 BP 110 / 56; Pulse 70; Resp 16; Pulse Ox 97% on R/A; tr5 Baldemar Coma Score: 12:22 Eye Response: spontaneous(4). Verbal Response: oriented(5). Motor Response: obeys rn commands(6). Total: 15. MDM: 09:57 Patient medically screened. rn 12:22 Differential diagnosis: migraine, tension headache, vasomotor headache, complicated rn migraine. Data reviewed: vital signs, nurses notes, old medical records, and as a result, I will discharge patient. Counseling: I had a detailed discussion with the patient and/or guardian regarding: the historical points, exam findings, and any diagnostic results supporting the discharge/admit diagnosis, the need for outpatient follow up, to return to the emergency department if symptoms worsen or persist or if there are any questions or concerns that arise at home. Response to treatment: the patient's symptoms have markedly improved after treatment, sleeping comfortably. Special discussion: I discussed with the patient/guardian in detail that at this point there is no indication for admission to the hospital. It is understood, however, that if the symptoms persist or worsen the patient needs to return immediately for re-evaluation. Based on the history and exam findings, there is no indication for further emergent testing or inpatient evaluation. I discussed with the patient/guardian the need to see the neurologist for further evaluation of the symptoms. 09/07 10:06 Order name: IV Start; Complete Time: 10:20 rn Administered Medications: 10:29 Drug: morphine 4 mg Route: IVP; Site: right forearm; tr5 11:05 Follow up: Response: Pain is decreased tr5 10:30 Drug: NS 0.9% 1000 ml Route: IV; Rate: 1000 ml; Site: right forearm; tr5 11:05 Follow up: Response: No adverse reaction; IV Status: Completed infusion tr5 10:30 Drug: Reglan 10 mg Route: IVP; Site: right forearm; tr5 11:05 Follow up: Response: No adverse reaction tr5 10:30 Drug: Decadron - Dexamethasone 10 mg Route: IVP; Site: right forearm; tr5 11:05 Follow up: Response: Pain is decreased tr5 12:09 Drug: morphine 4 mg Route: IVP; Site: right antecubital; tr5 12:35 Follow up: Response: No adverse reaction tr5 Disposition: 09/07/18 12:23 Discharged to Home. Impression: Complicated migraine. - Condition is Stable. - Discharge Instructions: Recurrent Migraine Headache. - Medication Reconciliation Form, Thank You Letter, Antibiotic Education, Prescription Opioid Use form. - Follow up: Private Physician; When: As needed; Reason: Recheck today's complaints, Re-evaluation by your physician. - Problem is new. - Symptoms have improved. Signatures: Grzegorz Henderson MD MD rn Smirch, Shelby, RN RN ss Rodriguez, Tommie, RN RN tr5 Corrections: (The following items were deleted from the chart) 10:42 10:04 PMHx: "born premature with multiple strokes"; ss tr5 10:42 10:04 PMHx: Asthma; ss tr5 10:42 10:04 PMHx: Hypertension; ss tr5 10:42 10:04 PMHx: Migraines; ss tr5 11:09 11:05 Constitutional: Negative for fever, chills, and weight loss, Eyes: Negative for rn injury, pain, redness, and discharge, Neck: Negative for injury, pain, and swelling, Cardiovascular: Negative for chest pain, palpitations, and edema, Respiratory: Negative for shortness of breath, cough, wheezing, and pleuritic chest pain, Abdomen/GI: Negative for abdominal pain, nausea, vomiting, diarrhea, and constipation, MS/Extremity: Negative for injury and deformity, Skin: Negative for injury, rash, and discoloration, Neuro: Negative for weakness, and seizure, rn 12:44 12:23 09/07/2018 12:23 Discharged to Home. Impression: Complicated migraine. Condition tr5 is Stable. Forms are Medication Reconciliation Form, Thank You Letter, Antibiotic Education, Prescription Opioid Use. Follow up: Private Physician; When: As needed; Reason: Recheck today's complaints, Re-evaluation by your physician. Problem is new. Symptoms have improved. rn
--- NOTE | 2018-09-07 12:24 | ER ---
Nurse's Notes [facility] Name: Stew Mcclendon Age: 32 yrs Sex: Male : 1985 Arrival Date: 09/07/2018 Time: 09:53 Bed 5 Private MD: Diagnosis: Complicated migraine Presentation: 09/07 10:03 Presenting complaint: Mother states: Seen last week for migraine, spouse states that ss since then the headaches have been becoming worse. This migraine began this morning. Has an appointment with a neurologist Sunday. Transition of care: patient was not received from another setting of care. Onset of symptoms is unknown. Risk Assessment: Do you want to hurt yourself or someone else? Patient reports no desire to harm self or others. Initial Sepsis Screen: Does the patient meet any 2 criteria? No. Patient's initial sepsis screen is negative. Does the patient have a suspected source of infection? No. Patient's initial sepsis screen is negative. Care prior to arrival: None. 10:03 Method Of Arrival: Wheelchair ss 10:03 Acuity: JEAN 2 ss Triage Assessment: 10:08 Headache History: Headache History: The patient has had previous headaches and this one tr5 is similar to previous episodes. 10:30 General: Appears distressed, uncomfortable, Behavior is appropriate for age. Pain: Pain tr5 currently is 9 out of 10 on a pain scale. Pain began 4 hours ago. Is continuous, Alleviated by rest, Noted to be grimacing, guarding, restless, Also complains of nausea, photophobia, sleeplessness. EENT: No signs and/or symptoms were reported regarding the EENT system. Neuro: Level of Consciousness is awake, alert, Oriented to person, place, time. Cardiovascular: Heart tones present. Respiratory: Airway is patent Trachea midline Respiratory effort is even, unlabored, Breath sounds are clear bilaterally. GI: Reports nausea. : No signs and/or symptoms were reported regarding the genitourinary system. Derm: No signs and/or symptoms reported regarding the dermatologic system. Skin is intact, is healthy with good turgor, Skin is dry, Skin is pink, warm \\T\\ dry. Musculoskeletal: Capillary refill < 3 seconds. Historical: - Allergies: 10:04 Ceclor; ss 10:04 PENICILLINS; ss 10:04 Tylenol; ss - Home Meds: 10:41 Propranolol Oral for Migraines [Active]; tr5 - PMHx: 10:41 "born premature with multiple strokes"; Asthma; Hypertension; Migraines; tr5 - Immunization history:: Adult Immunizations up to date. - Social history:: Smoking status: Patient/guardian denies using tobacco. - Ebola Screening: : Patient negative for fever greater than or equal to 101.5 degrees Fahrenheit, and additional compatible Ebola Virus Disease symptoms. - Family history:: not pertinent. - Hospitalizations: : No recent hospitalization is reported. Screenin:34 Abuse screen: Denies threats or abuse. Nutritional screening: No deficits noted. tr5 Tuberculosis screening: No symptoms or risk factors identified. Fall Risk None identified. Assessment: 10:36 Pain: Complains of pain in top of head, forehead, right eye, right cheek, right ear, tr5 right lutheran and right jaw. 11:04 Reassessment: Patient appears in no apparent distress at this time. Patient and/or tr5 family updated on plan of care and expected duration. Pain level reassessed. Vital Signs: 10:04 BP 155 / 107; Pulse 84; Resp 22; Temp 97.6(TE); Pulse Ox 100% on R/A; ss 11:04 BP 110 / 56; Pulse 70; Resp 16; Pulse Ox 97% on R/A; tr5 [place] Coma Score: 12:22 Eye Response: spontaneous(4). Verbal Response: oriented(5). Motor Response: obeys rn commands(6). Total: 15. ED Course: 09:53 Patient arrived in ED. as 09:57 Grzegorz Henderson MD is Attending Physician. rn 10:04 Triage completed. ss 10:04 Arm band placed on right wrist. ss 10:05 Jeremy Reyna, LEW is Primary Nurse. tr5 10:12 CT completed. Patient tolerated procedure well. Patient moved back from CT. mw3 10:36 Inserted saline lock: 18 gauge in right forearm, using aseptic technique. tr5 10:39 Patient has correct armband on for positive identification. Bed in low position. Call tr5 light in reach. 12:42 No provider procedures requiring assistance completed. Patient did not have IV access tr5 during this emergency room visit. Administered Medications: 10:29 Drug: morphine 4 mg Route: IVP; Site: right forearm; tr5 11:05 Follow up: Response: Pain is decreased tr5 10:30 Drug: NS 0.9% 1000 ml Route: IV; Rate: 1000 ml; Site: right forearm; tr5 11:05 Follow up: Response: No adverse reaction; IV Status: Completed infusion tr5 10:30 Drug: Reglan 10 mg Route: IVP; Site: right forearm; tr5 11:05 Follow up: Response: No adverse reaction tr5 10:30 Drug: Decadron - Dexamethasone 10 mg Route: IVP; Site: right forearm; tr5 11:05 Follow up: Response: Pain is decreased tr5 12:09 Drug: morphine 4 mg Route: IVP; Site: right antecubital; tr5 12:35 Follow up: Response: No adverse reaction tr5 Outcome: 12:23 Discharge ordered by . rn 12:42 Discharged to home ambulatory. tr5 12:42 Condition: stable 12:42 Discharge instructions given to patient. 12:44 Patient left the ED. tr5 Signatures: Jenifer Plummer Roman, MD MD rn Smirch, Shelby, RN RN ss Willis, Michelle mw3 Jeremy Reyna RN RN tr5 Corrections: (The following items were deleted from the chart) 10:34 10:08 Headache History: tr5 tr5 10:42 10:04 PMHx: "born premature with multiple strokes"; tr5 :42 10:04 PMHx: Asthma; tr5 10: 10:04 PMHx: Hypertension; tr5 :42 10:04 PMHx: Migraines; tr5
== END 2018-09-07 12:44 | disposition home or self-care (01) ==
LOC: ER 09:52
DX: G43.109 Migraine with aura, not intractable, without status migrainosus (principal); J45.909 Unspecified asthma, uncomplicated; I10 Essential (primary) hypertension; Z88.6 Allergy status to analgesic agent; Z88.1 Allergy status to other antibiotic agents; Z88.0 Allergy status to penicillin
CPT/HCPCS: 99284; J1100; J2765; J7030

== ENCOUNTER 2018-12-12 10:33 | Emergency (ER) | payer OTHER ==
--- NOTE | 2018-12-12 11:01 | RAD REPORT ---
EXAM DESCRIPTION: CT - Ct Stroke Brain Wo Cont - 12/12/2018 10:51 am CLINICAL HISTORY: Headache, left facial droop, right arm numbness and tingling, TIA history CLINICAL HISTORY: CT head August 30, 2018 TECHNIQUE: Axial 5 millimeter thick images of the head were obtained without IV contrast. All CT scans are performed using dose optimization technique as appropriate and may include automated exposure control or mA/KV adjustment according to patient size. FINDINGS: No intracranial hemorrhage, mass, or cerebral edema. No acute infarction identifiable. No cortical edema or sulcal effacement. Shaffer matter-white matter differentiation is preserved. Ventricles are normal. Visualized portions of the mastoid air cells, paranasal sinuses, and orbits are unremarkable. Findings telephoned to the referring physician 10:58 a.m. IMPRESSION: No CT evidence of acute intracranial process. Ongoing clinical concerns for CVA can be addressed with MR imaging.
[2018-12-12] MEDS ORDERED: ASPIRIN 81 MG CHEWABLE TABLET ONE (11:15)
[2018-12-12] MEDS ORDERED: NA CHLORIDE 0.9% 1,000 ML ONE (11:16)
[2018-12-12] MEDS ORDERED: FOLIC ACID 5 MG/ML VIAL ONE (11:16)
--- NOTE | 2018-12-12 11:24 | RAD REPORT ---
EXAM DESCRIPTION: RAD - Chest Single View - 12/12/2018 11:09 am CLINICAL HISTORY: Stroke protocol chest film COMPARISON: August 30 TECHNIQUE: AP portable chest image was obtained 1102 hours . FINDINGS: Lungs are clear. Heart and vasculature are normal. No measurable pleural effusion and no p neumothorax. No acute bony abnormality seen. No acute aortic findings suspected. IMPRESSION: No acute cardiopulmonary process. No significant change comparison.
[2018-12-12 11:25] LABS: Absolute Lymphocytes (CBC) 1.8 K/uL (0.7-4.9); Basophils % 0.7 % (0-1.3); Hematocrit 46.3 % (39.6-49.0); Lymphocytes % 22.5 % (15.3-44.8); MPV 7.8 fL (7.6-11.3); RBC Red Blood Cell Count 5.11 M/uL (4.33-5.43)
[2018-12-12 11:29] LABS: Protime INR 0.97
[2018-12-12 11:33] LABS: Potassium 3.9 mmol/L (3.5-5.1)
--- NOTE | 2018-12-12 12:09 | RAD REPORT ---
EXAM DESCRIPTION: MRI - Brain Wo Cont - 12/12/2018 11:57 am CLINICAL HISTORY: Dizziness;Headache, stroke-like symptoms, history of CVA, headache COMPARISON: CT head December 12, MRI August 30 TECHNIQUE: Sagittal T1-weighted images were obtained along with axial PD, heavily T2-weighted and T2 -FLAIR images. Axial DWI and ADC mapping sequences were also obtained along with coronal heavily T2-w eighted images. FINDINGS: Diffusion-weighted imaging shows no acute infarction. There is no hemorrhage, mass or acut e intracranial finding suspected. There is no edema or shift of midline structures. No extra-axial fl uid collections. Shaffer-matter/white matter junction is preserved. Signal voids are seen as a normal fi nding in the major intracranial vessels. Ventricles are normal. No suspicious white matter signal pat tern. No cortical edema or sulcal effacement seen. No globe or orbital content abnormality seen. Optic nerves and extraocular muscles show no suspicious findings. No asymmetry seen in either temporal lobe. No sella or supra sella abnormality. Mastoid air cells and paranasal sinuses are clear. IMPRESSION: No acute infarction changes are present. No significant finding identified on this study. No identifiable change from the August 2018 study.
--- NOTE | 2018-12-12 12:34 | EKG ---
Test Date: 2018-12-12 Test Time: 11:21:41 Manual Plate Filler: SUSAN MEASUREMENT RESULTS: Intervals: Rate: 77 VT: 134 QRSD: 88 QT: 388 QTc: 439 [place]: P: 51 VT: 134 QRS: 67 T: 91 INTERPRETIVE STATEMENTS: Normal sinus rhythm Normal ECG Compared to ECG 08/30/2018 12:53:40 ST (T wave) deviation no longer present Electronically Signed On 12-12-18 12:33:26 CDT by Carroll Albarran
--- NOTE | 2018-12-12 13:10 | ER ---
Nurse's Notes [facility] Name: Stew Mcclendon Age: 33 yrs Sex: Male : 1985 Arrival Date: 12/12/2018 Time: 10:34 Bed 8 Private MD: Diagnosis: Headache;Migraine Presentation: 12/12 10:30 Presenting complaint: EMS states: migraine (reports he gets migraines daily), right sv sided arm \\T\\ leg weakness started Sunday, [place] scale negative. BP 145/107 HR-86 SR. Transition of care: patient was not received from another setting of care. Onset of symptoms was December 08, 2018. Risk Assessment: Do you want to hurt yourself or someone else? Patient reports no desire to harm self or others. Initial Sepsis Screen: Does the patient meet any 2 criteria? No. Patient's initial sepsis screen is negative. Does the patient have a suspected source of infection? No. Patient's initial sepsis screen is negative. Care prior to arrival: Glucose check: 99. 10:30 Method Of Arrival: EMS: [facility] sv 10:30 Acuity: JEAN 2 sv Triage Assessment: 10:35 Headache History: The patient has had previous headaches and this one is similar to previous episodes. General: Appears in no apparent distress. uncomfortable, well groomed, well developed, Behavior is calm, cooperative, appropriate for age. Pain: Complains of pain in right base of the skull and right occipital area and right side of the back of head and left base of the skull and left occipital area and left side of the back of head Pain currently is 8 out of 10 on a pain scale. Quality of pain is described as throbbing, Pain began Sunday Is continuous, Noted to be quiet/stoic, Also complains of nausea. Neuro: Level of Consciousness is awake, alert, obeys commands, Oriented to person, place, time, situation, Rolling Chair Pusher are weak bilaterally Moves all extremities. Speech is normal, slow. Facial symmetry appears normal, Reports headache occipital area, numbness in right arm and left arm weakness in right arm, left arm, right leg and left leg. Neuro:. Cardiovascular: Patient's skin is warm and dry. Rhythm is sinus rhythm. Respiratory: Airway is patent Respiratory effort is even, unlabored, Respiratory pattern is regular, symmetrical. Derm: Skin is pink, warm \\T\\ dry. Historical: - Allergies: 10:57 Ceclor; sv 10:57 PENICILLINS; sv 10:57 Tylenol; sv 10:57 Latex, Natural Rubber; sv - Home Meds: 10:57 Trokendi 300 mg [Active]; sv - PMHx: 10:57 "born premature with multiple strokes"; Asthma; Hypertension; Migraines; TIA; sv - Immunization history:: Adult Immunizations up to date. - Social history:: Smoking status: Patient/guardian denies using tobacco. - Family history:: not pertinent. - Ebola Screening: : No symptoms or risks identified at this time. Screenin:35 VAN Screening: Arm Drift: Patient shows no arm weakness. Patient is VAN negative. sv Visual Disturbance: No visual disturbance noted. Aphasia: No aphasia noted. Neglect: No neglect noted. 11:07 Abuse screen: Denies threats or abuse. Denies injuries from another. Nutritional sv screening: No deficits noted. Tuberculosis screening: No symptoms or risk factors identified. Fall Risk None identified. 11:15 Patient has been NPO before screening. The patient is alert, able to follow commands. sv The patient does not exhibit slurred or garbled speech The patient is not exhibiting difficulty speaking. The patient does not exhibit difficulty understanding words. The patient is able to swallow own secretions with no drooling or need for suction. Patient tolerated one teaspoon of water. No drooling, immediate coughing, gurgling, or clearing of the throat was noted. The patient tolerated 90mL of water. No drooling, immediate coughing, gurgling, or clearing of the throat was noted. The patient passed the bedside swallow screening. Oral medications may be given as ordered. Contact Physician for further diet orders. Provider notified of bedside swallow screening results: Zhou Mix MD. Assessment: 10:35 Reassessment: Susan HALL at the bedside to assess pt. sv 10:35 Reassessment: Pt reports he was at work today and felt like his left face was drooping, sv went to medical and they said his left face was drooping and EMS was called. Pt also reports numbness/tingling to BUE and BLE, twitching to bilateral hands. Has been seeing Dr Akhtar and he increased his Trokendi to 300 mg from 200 mg and they are seeing if he has MS. He also had 3 TIAs in August 2018. 10:43 Reassessment: Code Stroke called. sv 10:43 Reassessment: Dr Mix at the bedside. sv 11:00 Reassessment: US IV being attempted by Byron HACKETT at bedside. sv 11:25 Reassessment: Patient appears in no apparent distress at this time. No changes from sv previously documented assessment. Patient and/or family updated on plan of care and expected duration. Pain level reassessed. Patient is alert, oriented x 3, equal unlabored respirations, skin warm/dry/pink. 13:27 Reassessment: Patient appears in no apparent distress at this time. No changes from la1 previously documented assessment. Patient and/or family updated on plan of care and expected duration. Pain level reassessed. Patient is alert, oriented x 3, equal unlabored respirations, skin warm/dry/pink. Vital Signs: 10:33 BP 141 / 106; Pulse 87; Resp 18; Temp 98; Pulse Ox 98% ; Weight 104 kg; Height 5 ft. 8 sv in. (172.72 cm); 10:58 BP 137 / 93; Pulse 76; Resp 12; Pulse Ox 98% ; sv 11:24 BP 121 / 83; Pulse 79; Resp 16; Pulse Ox 98% ; sv 12:41 BP 134 / 92; Pulse 72; Resp 16; Pulse Ox 99% ; sv 13:26 BP 111 / 79; Pulse 89; Resp 16; Temp 97.1; Pulse Ox 100% on R/A; la1 10:33 Body Mass Index 34.86 (104.00 kg, 172.72 cm) sv ED Course: 10:34 Patient arrived in ED. ss 10:35 Zhou Mix MD is Attending Physician. dung 10:35 Arm band placed on. sv 10:35 Patient has correct armband on for positive identification. Placed in gown. Bed in low sv position. Call light in reach. Side rails up X2. facility maintenance technician on. Pulse ox on. NIBP on. Head of bed elevated. 10:40 Susan Mix FNP-C is PHCP. kb 10:43 Janell Clifton, RN is Primary Nurse. sv 10:[address] via stretcher. sv 10:48 Triage completed. sv 10:52 CT Stroke Brain w/o Contrast In Process Unspecified. EDMS 10:55 Patient moved back from CT. sv 11:10 Inserted saline lock: 18 gauge in right forearm, using aseptic technique. ,using sv aseptic technique. done by Byron HACKETT Blood collected. 11:11 Stroke CXR 1 View In Process Unspecified. EDMS 11:24 EKG done, by life support technician. reviewed by Zhou Mix MD. sm3 11:27 Patient moved to MRI via wheelchair. sv 12:07 Brain Wo Cont In Process Unspecified. EDMS 12:55 Awaiting disposition, Awaiting re-evaluation by ER provider. sv 12:55 Warm blanket given. sv 13:08 Michael Todd MD is Referral Physician. dung 13:26 No provider procedures requiring assistance completed. IV discontinued, intact, la1 bleeding controlled, No redness/swelling at site. Pressure dressing applied. Administered Medications: 11:25 Drug: NS 0.9% 1000 ml Route: IV; Rate: 1 bolus; Site: right forearm; sv 13:28 Follow up: IV Status: Completed infusion la1 11:25 Drug: foLIC Acid 1 mg Route: IVPB; Site: right forearm; sv 13:28 Follow up: IV Status: Completed infusion la1 11:25 Drug: Aspirin 162 mg Route: PO; sv 12:00 Follow up: Response: No adverse reaction sv Outcome: 13:08 Discharge ordered by . dung 13:27 Discharged to home ambulatory. la1 13:27 Condition: stable 13:27 Discharge instructions given to patient, Instructed on discharge instructions, follow up and referral plans. medication usage, Demonstrated understanding of instructions, follow-up care, medications. 13:27 Patient left the ED. la1 Signatures: Dispatcher [employer] EDMS Susan Mix, MULTIMEDIA SPECIALIST-C MASOOD-Janell Alcantar RN RN sv Anderson, Corey, MD MD cha Smirch, Shelby, RN RN ss Attema, Lee, RN RN la1 Idania Billings 3 Corrections: (The following items were deleted from the chart) 11:27 10:33 BP 141 / 106; Pulse 87bpm; Resp 18bpm; Pulse Ox 98%; sv sv
--- NOTE | 2018-12-12 13:11 | EDPHYS ---
Physician Documentation [facility] Name: Stew Mcclendon Age: 33 yrs Sex: Male : 1985 Arrival Date: 12/12/2018 Time: 10:34 Bed 8 Private MD: ED Physician Zhou Mix HPI: 12/12 10:51 This 33 yrs old Male presents to ER via EMS with complaints of Headache, dung Numbness. 10:51 The patient complains of pain to the left side of the back of head, left occipital dung area, left base of the skull, right side of the back of head, right occipital area and right base of the skull. The patient describes the headache as aching. Onset: The symptoms/episode began/occurred just prior to arrival, this morning. Associated signs and symptoms: Pertinent positives: dizziness, nausea. Severity of symptoms: At its worst the pain was mild, moderate, in the emergency department the pain is unchanged. Headache History: The patient has had previous headaches and this one is similar to previous episodes. The symptoms are alleviated by nothing. the symptoms are aggravated by nothing. The patient has not experienced similar symptoms in the past. Historical: - Allergies: 10:57 Ceclor; sv 10:57 PENICILLINS; sv 10:57 Tylenol; sv 10:57 Latex, Natural Rubber; sv - Home Meds: 10:57 Trokendi 300 mg [Active]; sv - PMHx: 10:57 "born premature with multiple strokes"; Asthma; Hypertension; Migraines; TIA; sv - Immunization history:: Adult Immunizations up to date. - Social history:: Smoking status: Patient/guardian denies using tobacco. - Family history:: not pertinent. - Ebola Screening: : No symptoms or risks identified at this time. ROS: 10:51 Constitutional: Negative for fever, chills, and weight loss, Eyes: Negative for injury, dung pain, redness, and discharge, ENT: Negative for injury, pain, and discharge, Neck: Negative for injury, pain, and swelling, Cardiovascular: Negative for chest pain, palpitations, and edema, Respiratory: Negative for shortness of breath, cough, wheezing, and pleuritic chest pain, Abdomen/GI: Negative for abdominal pain, nausea, vomiting, diarrhea, and constipation, Back: Negative for injury and pain, : Negative for injury, bleeding, discharge, and swelling, MS/Extremity: Negative for injury and deformity, Skin: Negative for injury, rash, and discoloration, Psych: Negative for depression, anxiety, suicide ideation, homicidal ideation, and hallucinations, Allergy/Immunology: Negative for hives, rash, and allergies, Endocrine: Negative for neck swelling, polydipsia, polyuria, polyphagia, and marked weight changes, Hematologic/Lymphatic: Negative for swollen nodes, abnormal bleeding, and unusual bruising. 10:51 Neuro: Positive for headache, tingling, of the right occipital area and left occipital area. Exam: 10:51 Constitutional: This is a well developed, well nourished patient who is awake, alert, dung and in no acute distress. Head/Face: Normocephalic, atraumatic. Eyes: Pupils equal round and reactive to light, extra-ocular motions intact. Lids and lashes normal. Conjunctiva and sclera are non-icteric and not injected. Cornea within normal limits. Periorbital areas with no swelling, redness, or edema. ENT: Nares patent. No nasal discharge, no septal abnormalities noted. Tympanic membranes are normal and external auditory canals are clear. Oropharynx with no redness, swelling, or masses, exudates, or evidence of obstruction, uvula midline. Mucous membranes moist. Neck: Trachea midline, no thyromegaly or masses palpated, and no cervical lymphadenopathy. Supple, full range of motion without nuchal rigidity, or vertebral point tenderness. No Meningismus. Chest/axilla: Normal chest wall appearance and motion. Nontender with no deformity. No lesions are appreciated. Cardiovascular: Regular rate and rhythm with a normal S1 and S2. No gallops, murmurs, or rubs. Normal PMI, no JVD. No pulse deficits. Respiratory: Lungs have equal breath sounds bilaterally, clear to auscultation and percussion. No rales, rhonchi or wheezes noted. No increased work of breathing, no retractions or nasal flaring. Abdomen/GI: Soft, non-tender, with normal bowel sounds. No distension or tympany. No guarding or rebound. No evidence of tenderness throughout. Back: No spinal tenderness. No costovertebral tenderness. Full range of motion. Male : Normal genitalia with no discharge or lesions. Skin: Warm, dry with normal turgor. Normal color with no rashes, no lesions, and no evidence of cellulitis. MS/ Extremity: Pulses equal, no cyanosis. Neurovascular intact. Full, normal range of motion. Neuro: Awake and alert, GCS 15, oriented to person, place, time, and situation. Cranial nerves II-XII grossly intact. Motor strength 5/5 in all extremities. Sensory grossly intact. Cerebellar exam normal. Normal gait. Psych: Awake, alert, with orientation to person, place and time. Behavior, mood, and affect are within normal limits. Vital Signs: 10:33 BP 141 / 106; Pulse 87; Resp 18; Temp 98; Pulse Ox 98% ; Weight 104 kg; Height 5 ft. 8 sv in. (172.72 cm); 10:58 BP 137 / 93; Pulse 76; Resp 12; Pulse Ox 98% ; sv 11:24 BP 121 / 83; Pulse 79; Resp 16; Pulse Ox 98% ; sv 12:41 BP 134 / 92; Pulse 72; Resp 16; Pulse Ox 99% ; sv 13:26 BP 111 / 79; Pulse 89; Resp 16; Temp 97.1; Pulse Ox 100% on R/A; la1 10:33 Body Mass Index 34.86 (104.00 kg, 172.72 cm) sv MDM: 10:35 Patient medically screened. [facility] 10:56 Data reviewed: vital signs, nurses notes, lab test result(s), EKG, radiologic studies, [facility] CT scan, MRI, plain films. 12/12 10:44 Order name: Basic Metabolic Panel; Complete Time: 12:35 kb 12/12 10:44 Order name: CBC with Diff; Complete Time: 12:35 kb 12/12 10:44 Order name: Protime (+inr); Complete Time: 12:35 kb 12/12 10:44 Order name: Ptt, Activated; Complete Time: 12:35 kb 12/12 10:54 Order name: FSBG Nova; Complete Time: 12:35 sv 12/12 10:44 Order name: CT Stroke Brain w/o Contrast; Complete Time: 12:35 kb 12/12 10:44 Order name: Stroke CXR 1 View; Complete Time: 12:35 kb 12/12 10:44 Order name: EKG; Complete Time: 10:44 kb 12/12 11:16 Order name: Brain Wo Cont; Complete Time: 12:35 EDMS 12/12 10:44 Order name: Accucheck; Complete Time: 11:02 kb 12/12 10:44 Order name: Cardiac monitoring; Complete Time: 11:02 kb 12/12 10:44 Order name: EKG - Nurse/Tech; Complete Time: 11:25 kb 12/12 10:44 Order name: IV Saline Lock; Complete Time: 11:25 kb 12/12 10:44 Order name: Labs collected and sent; Complete Time: 11:25 kb 12/12 10:44 Order name: NPO; Complete Time: 11: kb 12/12 10:44 Order name: O2 Per Protocol; Complete Time: 11: kb 12/12 10:44 Order name: O2 Sat Monitoring; Complete Time: 11: kb 12/12 10:44 Order name: Stroke Swallow Screen; Complete Time: 11:25 kb Administered Medications: 11:25 Drug: NS 0.9% 1000 ml Route: IV; Rate: 1 bolus; Site: right forearm; sv 13:28 Follow up: IV Status: Completed infusion la1 11:25 Drug: foLIC Acid 1 mg Route: IVPB; Site: right forearm; sv 13:28 Follow up: IV Status: Completed infusion la1 11:25 Drug: Aspirin 162 mg Route: PO; sv 12:00 Follow up: Response: No adverse reaction sv Disposition: 12/12/18 13:08 Discharged to Home. Impression: Headache, Migraine. - Condition is Stable. - Discharge Instructions: General Headache Without Cause, Migraine Headache, Migraine Headache, [id number], Aspirin and Your Heart, General Headache Without Cause, Viwq-rm-Mhar. - Prescriptions for Zofran 4 mg Oral Tablet - take 1 tablet by ORAL route every 12 hours As needed; 20 tablet. - Medication Reconciliation Form, Thank You Letter, Antibiotic Education, Prescription Opioid Use, Work release form form. - Follow up: Private Physician; When: 2 - 3 days; Reason: Recheck today's complaints, Continuance of care, Re-evaluation by your physician. Follow up: Michael Todd MD; When: 1 - 2 days; Reason: Recheck today's complaints, Continuance of care, Re-evaluation by your physician. - Problem is new. - Symptoms have improved. Signatures: Dispatcher [employer] EDNV Susan Mix FNP-C FNP-Janell Alcantar, RN RN Zhou Inman MD MD cha Mickail, Joel, PA PA jmm Attema, Lee RN RN la1 Corrections: (The following items were deleted from the chart) 11:15 10:43 Brain Wo Cont+MRI.RAD.BRZ ordered. EDNV EDNV 11:15 10:51 MR STROKE PROTOCOL+MRI.RAD.BRZ ordered. EDNV EDNV 13:27 13:08 12/12/2018 13:08 Discharged to Home. Impression: Headache; Migraine. Condition is la1 Stable. Forms are Medication Reconciliation Form, Thank You Letter, Antibiotic Education, Prescription Opioid Use. Follow up: Private Physician; When: 2 - 3 days; Reason: Recheck today's complaints, Continuance of care, Re-evaluation by your physician. Follow up: Michael Todd; When: 1 - 2 days; Reason: Recheck today's complaints, Continuance of care, Re-evaluation by your physician. Problem is new. Symptoms have improved. dung
[2018-12-12 14:10] VITALS: BP 111/79; TEMP 97.1; O2SAT 100
== END 2018-12-12 13:27 | disposition home or self-care (01) ==
LOC: ER 10:33
DX: G43.909 Migraine, unspecified, not intractable, without status migrainosus (principal); I10 Essential (primary) hypertension; Z88.6 Allergy status to analgesic agent; Z91.040 Latex allergy status; Z91.048 Other nonmedicinal substance allergy status
CPT/HCPCS: 96365; 93005; 85025; 80048; 36415; 85610; 82962; 85730; 70450; 71045; 70551; 99285; 96366; J7030

== ENCOUNTER 2020-07-19 12:21 | Emergency (ER) | payer OTHER ==
--- OUTSIDE RECORDS SUMMARY | 2020-07-19 12:24 | XMS REPORT | Continuity of Care Document ---
:1985 Author Organization [facility] t Address [address] [place] [address] Care Team Providers Name Role Phone Asked, Pcp Primary Care Physician Unavailable Jovanny Mckenna DO Attending Clinician Stuart Akhtar MD Attending Clinician Problems This patient has no known problems. Allergies, Adverse Reactions, Alerts Allergy Allergy Status Severity Reaction(s) Onset Inactive Treating Comm ents Source Name Type Date Date Clinician Latex Propensi Active Rash 2018-0 [place] ty to 10-30 Methodi adverse 00:00: st reaction 00 s to drug Penicill Propensi Active [place] n ins ty to 10-30 Methodi adverse 00:00: st reaction 00 s to drug Social History Social Habit Start Date Stop Date Quantity Comments Source History [facility] Alcohol Binge History [facility] Alcohol Std Drinks Tobacco use and 2018-11-04 2018-11-04 Never used [facility]ist exposure 00:00:00 00:00:00 Alcohol intake 2018-11-04 2018-11-04 Lifetime [facility] 00:00:00 00:00:00 non-drinker (finding) History [facility] 2018-10-30 2018-10-30 1 [place] [facility] Alcohol Frequency 00:00:00 00:00:00 Sex Ass[birth year] At [birth year] Brian Alvarez ethodist 00:00:00 00:00:00 Smoking Status Start Date Stop Date Source Never smoker [place] [facility] t Medications Ordered Filled Start Stop Current Ordering Indication Dosage Frequency Signature Comments Components Source Medication Medication Date Date Medication? Clinician (SIG) Name Name topiramate 2019-0 Yes 200mg QD Take 200 [place] (TROKENDI 8-21 mg by Methodi XR) 200 mg 19:38: mouth st capsule,ext 19 daily. ended release 24hr Procedures This patient has no known procedures. Encounters Start End Encounter Admission Attending Care Care Encounter Source Date/Time Date/Time Type Type Clinicians Facility Department ID 2020-06-01 2020-06-01 Patient Bala [facility] [id number] 00:00:00 00:00:00 [facility] [id number] [facility] [id number] EBENEZER [id number] 2020-04-16 2020-04-19 Office Giovana [facility] [id number] 09:33:15 08:49:39 Visit Michael Sanches [id number] Ricky [id number] [place] [id number] nal 092 Building Results This patient has no known results.
[2020-07-19 14:32] LABS: Urine Blood 3+ (Negative); Urine Glucose Negative (Negative); Urine Protein 1+ (Negative); Urine Specific Gravity >=1.030 (1.005-1.030); Urine pH 5.5 (5.0-7.0)
[2020-07-19] MEDS ORDERED: TETANUS & DIPHTHERIA TOX,ADULT 0.5 ML VIAL ONE (14:55)
--- NOTE | 2020-07-19 14:56 | EDPHYS ---
Physician Documentation [facility] Name: Stew Mcclendon Age: 34 yrs Sex: Male : 1985 Arrival Date: 07/19/2020 Time: 12:25 Bed 6 Private MD: ED Physician Grzegorz Henderson HPI: 07/19 14:49 This 34 yrs old Male presents to ER via Ambulatory with complaints of rn Testicular Pain, Testicular Problem - Cut. 14:49 The patient presents with scrotal pain, of the left side, without swelling, without rn erythema. Onset: The symptoms/episode began/occurred 2 day(s) ago. Modifying factors: The symptoms are alleviated by nothing, the symptoms are aggravated by nothing. Severity of symptoms: At their worst the symptoms were moderate, in the emergency department the symptoms have improved. The patient has not experienced similar symptoms in the past. Reports scraped left scrotum on bolt on office chair, 2 days ago, bled for a bit, stopped, now having suprapubic pain and at times difficult to urinate, feels like has to push it out. No fever, no vomiting. + hx of kidney stones, has never required intervention. . Historical: - Allergies: 13:14 Ceclor; jd3 13:14 Latex, Natural Rubber; jd3 13:14 PENICILLINS; jd3 13:14 aspirin; jd3 - Home Meds: 13:14 citalopram oral [Active]; Trokendi 300 mg [Active]; jd3 - PMHx: 13:14 "born premature with multiple strokes"; Asthma; Hypertension; Migraines; TIA; jd3 - PSHx: 13:14 right eye; jd3 - Immunization history:: Adult Immunizations unknown. - Social history:: Smoking status: Patient denies any tobacco usage or history of. - Family history:: not pertinent. - Hospitalizations: : No recent hospitalization is reported. ROS: 14:49 Constitutional: Negative for fever, chills, and weight loss, Eyes: Negative for injury, rn pain, redness, and discharge, Neck: Negative for injury, pain, and swelling, Cardiovascular: Negative for chest pain, palpitations, and edema, Respiratory: Negative for shortness of breath, cough, wheezing, and pleuritic chest pain, Abdomen/GI: + suprapubic pain Back: Negative for injury and pain, : + scrotal abrasion MS/Extremity: Negative for injury and deformity, Skin: Negative for injury, rash, and discoloration, Neuro: Negative for headache, weakness, numbness, tingling, and seizure. Exam: 14:49 Constitutional: This is a well developed, well nourished patient who is awake, alert, rn and in no acute distress. Cardiovascular: Regular rate and rhythm. No pulse deficits. Respiratory: No increased work of breathing, no retractions or nasal flaring. Abdomen/GI: Soft, non-tender Male : + 2 linear superficial abrasions left scrotum, no active bleeding, no scrotal hematoma or testicular tenderness, no groin hernia. Skin: Warm, dry MS/ Extremity: Pulses equal, no cyanosis. Vital Signs: 13:14 BP 127 / 100; Pulse 88; Resp 16 S; Temp 97.1(TE); Pulse Ox 99% on R/A; Weight 106.59 kg jd3 (R); Height 5 ft. 8 in. (172.72 cm) (R); Pain 4/10; 13:14 Body Mass Index 35.73 (106.59 kg, 172.72 cm) jd3 MDM: 13:57 Patient medically screened. rn 14:49 Differential diagnosis: UTI, urethritis, scrotal trauma, ureterolithiasis. Data rn reviewed: vital signs, nurses notes, lab test result(s), urinalysis, and as a result, I will discharge patient. Counseling: I had a detailed discussion with the patient and/or guardian regarding: the historical points, exam findings, and any diagnostic results supporting the discharge/admit diagnosis, lab results, the need for outpatient follow up, to return to the emergency department if symptoms worsen or persist or if there are any questions or concerns that arise at home. Special discussion: I discussed with the patient/guardian in detail that at this point there is no indication for admission to the hospital. It is understood, however, that if the symptoms persist or worsen the patient needs to return immediately for re-evaluation. Based on the history and exam findings, there is no indication for further emergent testing or inpatient evaluation. I discussed with the patient/guardian the need to see the urologist for further evaluation of the symptoms. ED course: Likely having 2 problems, ureterolithiasis and abrasion to scrotum, has never required intervention and here primarily for scrotal injury which is very superficial and nothing to do. . 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. Exp: ll1 08/15/2021. Lot #: [id number]. } Route: IM; Site: left deltoid; 15:32 Follow up: Response: No adverse reaction; RASS: Alert and Calm (0) 1 14:45 Drug: Flomax (tamsulosin) 0.4 mg Route: PO; ll1 15:32 Follow up: Response: No adverse reaction; RASS: Alert and Calm (0) 1 Disposition: 07/19/20 14:55 Discharged to Home. Impression: Abrasion of scrotum, Calculus of ureter. - Condition is Stable. - Discharge Instructions: Abrasion, Kidney Stones, Dietary Guidelines to Help Prevent Kidney Stones. - Prescriptions for Tylenol- Codeine #3 300-30 mg Oral Tablet - take 1 tablet by ORAL route every 4-6 hours As needed; 15 tablet. Flomax 0.4 mg Oral Capsule, Sust. Release 24 hr - take 1 capsule by ORAL route once daily 1/2 hour following the same meal each day. Stop taking once you feel that you have passed the kidney stone, can make you lightheaded and lower your blood pressure.; 10 capsule. - Medication Reconciliation Form, Thank You Letter, Antibiotic Education, Prescription Opioid Use, Work release form form. - Follow up: Private Physician; When: As needed; Reason: Recheck today's complaints, Re-evaluation by your physician. - Problem is new. - Symptoms have improved. Signatures: Dispatcher [employer] EDMS Grzegorz Henderson MD MD rn Davies, Jonathon, RN RN jd3 Lewis, Lynsay, RN RN ll1 Corrections: (The following items were deleted from the chart) 15:12 14:55 07/19/2020 14:55 Discharged to Home. Impression: Abrasion of scrotum; Calculus of ll1 ureter. Condition is Stable. Forms are Medication Reconciliation Form, Thank You Letter, Antibiotic Education, Prescription Opioid Use. Follow up: Private Physician; When: As needed; Reason: Recheck today's complaints, Re-evaluation by your physician. Problem is new. Symptoms have improved. rn
--- NOTE | 2020-07-19 14:56 | ER ---
Nurse's Notes [facility] Name: Stew Mcclendon Age: 34 yrs Sex: Male : 1985 Arrival Date: 07/19/2020 Time: 12:25 Bed 6 Private MD: Diagnosis: Abrasion of scrotum;Calculus of ureter Presentation: 07/19 13:10 Chief complaint: Patient states: "I was unloading stuff at home and I cut my left jd3 testicle as it was bleeding. this happened on Sunday, it is still hurting today, but it is not bleeding and I have been starting to have urinary problems.". Coronavirus screen: At this time, the client does not indicate any symptoms associated with coronavirus-19. Ebola Screen: Patient negative for fever greater than or equal to 101.5 degrees Fahrenheit, and additional compatible Ebola Virus Disease symptoms. Initial Sepsis Screen: Does the patient meet any 2 criteria? No. Patient's initial sepsis screen is negative. Does the patient have a suspected source of infection? No. Patient's initial sepsis screen is negative. Risk Assessment: Do you want to hurt yourself or someone else? Patient reports no desire to harm self or others. Onset of symptoms was July 17, 2020. 13:10 Method Of Arrival: Ambulatory jd3 13:10 Acuity: JEAN 3 jd3 Triage Assessment: 14:26 General: Appears in no apparent distress. Behavior is calm, cooperative, appropriate ll1 for age. Historical: - Allergies: 13:14 Ceclor; jd3 13:14 Latex, Natural Rubber; jd3 13:14 PENICILLINS; jd3 13:14 aspirin; jd3 - Home Meds: 13:14 citalopram oral [Active]; Trokendi 300 mg [Active]; jd3 - PMHx: 13:14 "born premature with multiple strokes"; Asthma; Hypertension; Migraines; TIA; jd3 - PSHx: 13:14 right eye; jd3 - Immunization history:: Adult Immunizations unknown. - Social history:: Smoking status: Patient denies any tobacco usage or history of. - Family history:: not pertinent. - Hospitalizations: : No recent hospitalization is reported. Screenin:25 Abuse screen: Denies threats or abuse. Nutritional screening: No deficits noted. ll1 Tuberculosis screening: No symptoms or risk factors identified. Fall Risk None identified. Total Rodrigues Fall Scale indicates No Risk (0-24 pts). Assessment: 14:30 General: Appears in no apparent distress. Behavior is calm, cooperative. Pain: ll1 Complains of pain in L testes Quality of pain is described as aching, Aggravated by increased activity. GI: No deficits noted. : Urine is clear, Reports Scrotal pain: sudden onset urinary frequency. Derm: see Dr. Henderson notes for scrotum injury details. Reports abrasion L testes. Injury Description: Abrasion. Vital Signs: 13:14 BP 127 / 100; Pulse 88; Resp 16 S; Temp 97.1(TE); Pulse Ox 99% on R/A; Weight 106.59 kg jd3 (R); Height 5 ft. 8 in. (172.72 cm) (R); Pain 4/10; 13:14 Body Mass Index 35.73 (106.59 kg, 172.72 cm) jd3 ED Course: 12:25 Patient arrived in ED. am2 13:12 Triage completed. jd3 13:14 Arm band placed on. jd3 13:57 Grzegorz Henderson MD is Attending Physician. rn 14:26 Jolanta Turner RN is Primary Nurse. ll1 14:30 Patient has correct armband on for positive identification. Bed in low position. Call ll1 light in reach. Side rails up X2. Cardiac monitoring not applicable on this patient. 14:40 Urine Microscopic Only Sent. ll1 15:31 No provider procedures requiring assistance completed. Patient did not have IV access ll1 during this emergency room visit. 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 Exp: ll1 08/15/2021. Lot #: [id number]. } Route: IM; Site: left deltoid; 15:32 Follow up: Response: No adverse reaction; RASS: Alert and Calm (0) ll1 14:45 Drug: Flomax (tamsulosin) 0.4 mg Route: PO; ll1 15:32 Follow up: Response: No adverse reaction; RASS: Alert and Calm (0) ll1 Outcome: 14:55 Discharge ordered by . rn 15:12 Patient left the ED. ll1 15:12 Discharged to home ambulatory. ll1 15:12 Condition: stable 15:12 Discharge instructions given to patient, Instructed on discharge instructions, follow up and referral plans. medication usage, Demonstrated understanding of instructions, follow-up care, medications, Prescriptions given X 2. Signatures: Grzegorz Henderson MD MD rn Oksana Rangel Jonathon RN RN jd3 Jolanta Turner RN RN ll1
[2020-07-19] MEDS ORDERED: TAMSULOSIN 0.4 MG SR CAP ONE (15:01)
[2020-07-19 15:17] LABS: Urine Bacteria <20 /HPF (NONE SEEN); Urine Mucus 2+ /HPF (NONE SEEN)
[2020-07-19 15:20] VITALS: BP 127/100; TEMP 97.1; O2SAT 99
== END 2020-07-19 15:12 | disposition home or self-care (01) ==
LOC: ER 12:21
DX: S30.813A Abrasion of scrotum and testes, initial encounter (principal); N20.1 Calculus of ureter; W22.8XXA Striking against or struck by other objects, initial encounter; Y92.89 Other specified places as the place of occurrence of the external cause; Y99.8 Other external cause status; Z23 Encounter for immunization; I10 Essential (primary) hypertension; Z88.0 Allergy status to penicillin; Z88.1 Allergy status to other antibiotic agents; Z88.6 Allergy status to analgesic agent; Z91.040 Latex allergy status; Z91.048 Other nonmedicinal substance allergy status
CPT/HCPCS: 81003; 81015; 90471; 90714; 99283

== ENCOUNTER 2023-02-20 08:20 | Day surgery (SDC) | payer OTHER ==
[2023-01-12 08:54] LABS: Hematocrit 50.3 % (39.6-49.0); Lymphocytes % 24.9 % (15.3-44.8); MPV 7.1 fL (7.6-11.3); Platelets 215 thou/uL (152-406); RBC Red Blood Cell Count 5.59 M/uL (4.33-5.43)
[2023-01-12 08:55] LABS: Protime INR 0.99
[2023-01-12 09:07] LABS: Potassium 4.3 mEq/L (3.5-5.1)
--- NOTE | 2023-01-12 09:41 | RAD REPORT ---
EXAM DESCRIPTION: RAD - Chest Pa And Lat (2 Views) - 01/12/2023 9:34 am CLINICAL HISTORY: Pre op pending ESWL, asthma COMPARISON: Chest Single View dated 12/12/2018; Chest Single View dated 08/30/2018; Chest Single View dated 08/19/2018 FINDINGS: Lines: None. Lungs: No evidence of edema or pneumonia. Pleural: No significant pleural effusions or pneumothorax. Cardiac: The heart size is within normal limits. Mediastinum: Within normal limits. Bones: No acute fractures. Other: None IMPRESSION: No acute cardiopulmonary disease.
--- NOTE | 2023-01-20 14:47 | EKG ---
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
[2023-02-20] MEDS ORDERED: Ringers Lactate 1,000 ML IV ONE ×2 (08:35→13:19)
[2023-02-20] MEDS ORDERED: LIDOCAINE 2% MPF 5 ML VIAL ONE (08:54)
[2023-02-20] MEDS ORDERED: KETOROLAC 30 MG/ML INJ ONE (08:54)
[2023-02-20] MEDS ORDERED: ONDANSETRON 4 MG/2 ML VIAL ONE (08:54)
[2023-02-20] MEDS ORDERED: propofoL 200 MG/20 ML VIAL IV ONE (08:55)
[2023-02-20] MEDS ORDERED: MIDAZOLAM HCL 2 MG/2 ML INJ ONE ×2 (08:55→09:58)
[2023-02-20] MEDS ORDERED: FENTANYL CITR 100 MCG/2 ML ONE (08:55)
[2023-02-20] MEDS ORDERED: CLINDAMYCIN 600MG/D5W 50 ML IV ONE (09:45)
[2023-02-20] MEDS ORDERED: Gentamicin Inj 160 MG in NA CHLORIDE 0.9% 100 ML IV ONE (10:00)
[2023-02-20] MEDS ORDERED: ROCURONIUM 50 MG/5 ML VIAL IV ONE (10:03)
[2023-02-20] MEDS ORDERED: SUGAMMADEX SODIUM 200 MG/2 ML VIAL IV ONE (10:41)
[2023-02-20] MEDS ORDERED: CODEINE 30MG/APAP 300MG TAB PO PRN (11:36)
[2023-02-20] MEDS ORDERED: PHENAZOPYRIDINE 100MG TAB PO ONE ×2 (11:36→11:38)
[2023-02-20] MEDS ORDERED: CODEINE 30MG/APAP 300MG TAB ONE (11:47)
[2023-02-20] MEDS ORDERED: MEPERIDINE HCL 25 MG/ML SYR ONE (12:00)
--- NOTE | 2023-02-20 12:26 | OP ---
Surgeon: NAKIA LOGAN Preoperative Diagnoses: 1.Right nephrolithiasis, 19 mm. 2.Right flank pain. Postoperative Diagnoses: 1.Right nephrolithiasis, 19 mm. 2.Right flank pain. Principal Procedures: 1.Cystoscopy with right ureteral stent placement. 2.Right extracorporeal shockwave lithotripsy/ESWL. Indication For Procedure: Mr. Mcclendon presented to the [facility] with pain and imaging done a t an outside facility that revealed the presence of a 19 mm renal pelvic stone in the absence of hydr onephrosis. The stone was 644 Hounsfield units according to the radiologist. He underwent subsequen t plain x-ray imaging, which did reveal the visible presence of a 19 mm stone within the right renal pelvis, so he was consented and offered the option for noninvasive stone management via ESWL. Procedure In Detail: The patient was consented in the preoperative holding area before being transfe rred to the operative suite where general anesthesia was induced. Rapid sequence was performed becau se the patient took a dose of Ozempic about 5 days ago, his first. He did not reveal having taken th is new medication on his immediate preoperative evaluation before he was transferred to the operative suite. However, general anesthesia was successfully induced without any incident, and an OG tube wa s placed for gastric decompression. He was then positioned where the stone was visible fluoroscopica lly in the anterior, posterior, as well as the dorsal and ventral positions and with the stone adequa tely targeted, we then placed him in the lithotomy position and prepped his genitalia with Hibiclens. The case was begun by inserting a 22-Malawian rigid cystoscope via his urethra into his bladder with ease and decompressing his bladder of fluid and urine. I advanced a 5-Malawian ureteral access cathete r via the scope and intubated the right ureteral orifice. I then passed a Sensor wire via the 5-Fren ureteral access catheter and observed it coiled in the putative upper pole above the radiopaque ca lculus fluoroscopically visible. I then passed a 6-Malawian x 26 cm double-J ureteral stent over the w kyle and the tip of the stent did partially coil between the upper pole calyx and the renal pelvis, bu t unable to void completely due to the presence of the obstructing stone. An additional coil was vis ible cystoscopically within his bladder. His bladder was then decompressed of fluid and urine, and t he scope was removed. We then took him out of the lithotomy position and re-targeted the stone and c ontinued with shockwave lithotripsy. Of note, while the initial stent placement was taking place, we did begin shockwave lithotripsy targeting the stone initially with a power of 4 and increasing to ab out 5.5/200 shocks before a 2-minute pause was given. While we were taking the patient out of the li thotomy position, this occurred during the 2-minute pause, and once repositioned and re-targeted, sven ckwave lithotripsy then continued. We increased the power of the shocks to a power of 6 over the cou rse of the first 1000 to 1500 shocks and did observe what appeared to be some fragmentation of the st one. We continued shockwave lithotripsy to 1500 shocks before backing the therapeutic head out and s urveying the entirety of the kidney for any central area of residual stone burden. Some of that ston e dust did appear to be now within the upper pole with a smaller burden in the lower pole; so we targ eted the larger referred in the upper pole and continued shockwave lithotripsy for an additional 1000 shocks at power of 6.5 for a total of 2500 shocks. We then re-centered on the lower pole stone agustin en and targeted this for an additional 500 shocks for an ultimate total of 3000 shocks delivered with a maximum power of 6.5. The patient was then awakened from general anesthesia, transferred to a [facility], [facility], and then transferred to the recovery room in good condition. Complications: None. Discharge Disposition: He should be arranged for followup in 1 to 2 months' time and should obtain a KUB about 1 week prior to his followup appointment. He will be given a strainer to strain his urine for any stone dust for the first week or so after the surgery recognizing he may pass the remainder of the stone burden after the stent has been removed. If followup can be established sooner than 1 m onth, that would be reasonable to reassess and determine if he was eligible for cystoscopy and right ureteral stent extraction in the office. ALIVIA/JERRYL Voice ID: [id number] Report ID: [id number]
[2023-02-20] MEDS ORDERED: HYDROCODONE/APAP 5/325 MG TAB ONE (13:02)
[2023-02-20] MEDS ORDERED: HYDROMORPHONE HCL 0.5 MG/0.5 ML INJ IV PRN (13:24)
[2023-02-20] MEDS ORDERED: HYDROMORPHONE HCL 1 MG/ML INJ ONE (13:27)
--- NOTE | 2023-02-20 13:35 | P.PN ---
Date of Service: 02/20/23 37yo gentleman with anxiety d/o s/p right uncomplicated ESWL with cysto and right ureteral stent placed now with severe right flank and abdominal pain and expected gross hematuria, pain out of proportion to that expected from the procedure. He just received [place] 10mg about 10 mins prior in addition to T3 given prior to that as well as pyridium. Exam: Severe distress No dyspnea Abdomen guarded but non-distended urine bloody, port-wine colored, but no clots Plan: Dilaudid 0.25mg IV x 1 now CBC, CMP stat Stat CT Abdomen w IV contrast Bolus 1L NS/LR Addendum 3 PM: I reviewed the images of the CT scan in detail: It revealed significant fragmentation of the renal pelvic stone with stent in appropriate position, no associated hydronephrosis, perinephric stranding, sign of renal injury or perinephric hematoma. Blood work reviewed with appropriate reactive leukocytosis and normal hemoglobin/hematocrit as well as normal creatinine. Patient seen again and resting comfortably without any further signs of distress or discomfort. He was encouraged to void again so we can reassess his urine to ensure it was improving and decreasing in the content of blood.
[2023-02-20 14:03] LABS: Hematocrit 48.4 % (39.6-49.0); Lymphocytes % 12.7 % (15.3-44.8); MCV 90.3 fL (80-100); MPV 7.5 fL (7.6-11.3); Platelets 221 thou/uL (152-406); RBC Red Blood Cell Count 5.36 M/uL (4.33-5.43)
[2023-02-20 14:06] LABS: Albumin 3.9 g/dL (3.4-5.0); Bilirubin Total 0.9 mg/dL (0.2-1.0); Potassium 4.2 mEq/L (3.5-5.1); Protein, Total 7.4 g/dL (6.4-8.2)
[2023-02-20 14:32] VITALS: BP 114/62; TEMP 97; O2SAT 98
--- NOTE | 2023-02-20 14:52 | RAD REPORT ---
EXAM DESCRIPTION: CT - Abdomen Pelvis W/Wo Contrast - 02/20/2023 2:17 pm CLINICAL HISTORY: severe abdominal pain s/p right ESWL and stent COMPARISON: Abdomen Pelvis W/Wo Contrast dated 11/10/2022; CT ABD PELVIS W CONTRAST dated 01/01/2015 ; CTSTONE PROTOCOL dated 01/01/2015 TECHNIQUE: Thin cut axial CT imaging of the abdomen and pelvis was performed before and after intrav enous administration of 100 mL Isovue 300. Multiplanar reformats were generated and reviewed. All CT scans are performed using dose optimization technique as appropriate and may include automated exposure control or mA/KV adjustment according to patient size. FINDINGS: No suspicious findings in the lung bases. The liver, spleen, adrenal glands, and pancreas show no suspicious findings. Gallbladder shows few de pendent calcified stones. Symmetric renal function is seen with no hydronephrosis or suspicious renal mass. A right ureteral st ent has been placed. Heterogeneous radiodensities in the right renal calyces most pronounced superior ly, may represent fragments of calculi, residual contrast material, or a combination of both. The lar gest of these measures 13 millimeter. No evidence of intra renal or perirenal abnormal fluid collecti ons. The opacified aspect of the left urinary tract is unremarkable. No dilated bowel loops or bowel wall thickening. No free air, free fluid or inflammatory stranding. N o hernia, mass or bulky lymphadenopathy. The urinary bladder shows the distal aspect of the right ure teral stent. Serpiginous filling defects in the midline dependent and right aspect of the opacified b ladder on the delayed images may relate to blood products/ clots, versus artifact related to mixing o f non-opacified urine. No suspicious bony findings. IMPRESSION: Heterogeneous right renal radiodensities most evident in the superior calyx, may represe nt fragments of calculi, residual contrast material, or a combination of both. Satisfactory position of a right ureteral stent. No evidence of contrast extravasation, or abnormal fluid collection pertaining to the right kidney or collecting system. Few serpiginous filling defects in the opacified aspects of the bladder on the delayed images may rel ate to blood products/ clot versus artifact. Cholelithiasis.
== END 2023-02-20 15:50 | disposition home or self-care (01) ==
LOC: OR 08:20
PROVIDERS: ATTEND Urology
PROC: 0T768DZ Dilation of Right Ureter with Intraluminal Device, Via Natural or Artificial Opening Endoscopic (ICD-10-PCS; 2023-02-20)
PROC: 0TF38ZZ Fragmentation in Right Kidney Pelvis, Via Natural or Artificial Opening Endoscopic (ICD-10-PCS; principal; 2023-02-20 09:30)
DX: N20.0 Calculus of kidney (principal); R10.9 Unspecified abdominal pain; F41.9 Anxiety disorder, unspecified
CPT/HCPCS: 93005; 87088; 85025 ×2; 87086; 80048; 36415 ×2; 85610; 80053; 74178; 71046; 50590; 52332; Q9967 ×2; J2704; J1580; J2001; J2250; J3010; J2175; J1170; J2405; J7120 ×2